=== PATIENT | female | born 1935 | race Caucasian/White ===

== ENCOUNTER 2017-03-07 17:21 | Observation (INO) | payer OTHER, MEDICAID ==
--- NOTE | 2017-03-07 18:14 | ED PDOC ---
Arrival/HPI - General Chief Complaint: High Blood Pressure Time Seen by Provider: 03/07/17 17:57 Historian: Patient - History of Present Illness Narrative History of Present Illness (Text): 03/07/17 18:08 81 year old female with a past medical history that includes hypertension, pacemaker, hypercholesterolemia, presents to the emergency department with cough for the past 2 weeks, worsening lower extremity edema, and strange feeling associated with elevated blood pressure today. Patient states she was at a community center today where she had an elevated blood pressure reading . She describes a funny feeling that she can't explain. Denies dizziness, vision changes, speech changes, numbness or weakness, chest pain, or shortness of breath. Patient reports cough for 2 weeks and states she has had a wheezing sound when she breathes. No other complaints at this time. Time/Duration: > week Symptom Onset: Gradual Symptom Course: Unchanged Quality: Unable to Describe Past Medical History - Provider Review Nursing Documentation Reviewed: Yes - Infectious Disease Hx of Infectious Diseases: None - Tetanus Immunization Tetanus Immunization: Unknown - Cardiac Hx Cardiac Disorders: Yes Hx Hypertension: Yes Hx Pacemaker: Yes - Pulmonary Hx Respiratory Disorders: No - Neurological Hx Neurological Disorder: No - HEENT Hx HEENT Disorder: Yes Hx Cataracts: Yes (bilateral sx) - Renal Hx Renal Disorder: No - Endocrine/Metabolic Hx Endocrine Disorders: No - Hematological/Oncological Hx Blood Disorders: No - Integumentary Hx Dermatological Disorder: Yes Other/Comment: bruise right arm, right thigh, left knee, left neck - Musculoskeletal/Rheumatological Hx Musculoskeletal Disorders: Yes Hx Falls: Yes (fell 5 days ago and today) - Gastrointestinal Hx Gastrointestinal Disorders: No - Genitourinary/Gynecological Hx Genitourinary Disorders: No - Psychiatric Hx Psychophysiologic Disorder: Yes Hx Depression: Yes Hx Substance Use: No - Past Surgical History Past Surgical History: Non-Contributing - Surgical History Hx Hysterectomy: Yes Hx Orthopedic Surgery: Yes (left knee replacement, l shoulder sx) Other/Comment: pace maker - Suicidal Assessment Feels Threatened In Home Enviroment: No Family/Social History - Physician Review Nursing Documentation Reviewed: Yes Family/Social History: Unknown Family HX Smoking Status: Never Smoked Hx Alcohol Use: No Hx Substance Use: No Allergies/Home Meds Allergies/Adverse Reactions: Allergies iv dye Allergy (Uncoded 03/07/17 17:49) SWELLING Home Medications: Home Meds Medication Instructions Recorded Confirmed Amlodipine Besylate/Benazepr 10 mg PO DAILY 04/24/14 03/07/17 [Amlodipine Besylate/Benazepril Hydrochloride ] Sertraline Hydrochloride 100 mg PO HS 04/24/14 03/07/17 clonazePAM [clonAZEPAM] 0.5 mg PO DAILY PRN 04/24/14 03/07/17 Lisinopril [Zestril] 30 mg PO DAILY 03/07/17 03/07/17 Review of Systems - Physician Review All systems were reviewed & negative as marked: Yes - Review of Systems Eyes: absent: Vision Changes Respiratory: Cough. absent: SOB Cardiovascular: Edema. absent: Chest Pain Neurological: absent: Dizziness, Focal Weakness, Speech Changes Physical Exam Vital Signs Reviewed: Yes Vital Signs Temp Pulse Pulse Resp BP BP Pulse Ox 03/07/17 18:01 84 182/109 H 03/07/17 17:58 997.7 F H 85 8 L 197/108 H 96 03/07/17 17:43 97.7 F 85 20 197/108 H 97 Temperature: Afebrile Blood Pressure: Hypertensive Pulse: Regular Respiratory Rate: Normal Appearance: Positive for: Well-Appearing, Non-Toxic, Comfortable Pain Distress: None Mental Status: Positive for: Alert and Oriented X 3 - Systems Exam Head: Present: Atraumatic, Normocephalic Pupils: Present: PERRL Extroacular Muscles: Present: EOMI Conjunctiva: Present: Normal Mouth: Present: Moist Mucous Membranes Neck: Present: Normal Range of Motion Respiratory/Chest: Present: Clear to Auscultation, Good Air Exchange. No: Respiratory Distress, Accessory Muscle Use, Wheezes Cardiovascular: Present: Regular Rate and Rhythm, Normal S1, S2. No: Murmurs Abdomen: Present: Normal Bowel Sounds. No: Tenderness, Distention, Peritoneal Signs Back: Present: Normal Inspection Upper Extremity: Present: Normal Inspection. No: Cyanosis, Edema Lower Extremity: Present: Edema (2+ edema, R>L) Neurological: Present: GCS=15, CN II-XII Intact, Speech Normal Skin: Present: Warm, Dry, Normal Color. No: Rashes Psychiatric: Present: Alert, Oriented x 3, Normal Insight, Normal Concentration Medical Decision Making ED Course and Treatment: Impression: 81 year old female with a past medical history that includes hypertension, pacemaker, hypercholesterolemia, presents to the emergency department with cough for the past 2 weeks, worsening lower extremity edema, and strange feeling associated with elevated blood pressure today. Differential Diagnosis include but are not limited to: Pneumonia vs CHF vs hypertensive urgency Plan: -- EKG, Chest X-ray -- US duplex lower extremities -- Apresoline -- Labs -- Reassess and disposition Prior Visits: Notes and results from previous visits were reviewed. Patient last seen in ED on 12/16/15 for mechanical fall and discharged home. Progress Notes: 03/07/17 18:35 EKG: Paced rhythm at 70 bpm, no change from previous. 03/07/17 19:02 Patient signed out to Dr. Hanson to follow up labs, reeval and disposition. Most likely admisssion. - RAD Interpretation Radiology Orders: 03/07/17 18:07 CHEST PORTABLE [RAD] Stat 03/07/17 18:09 DUPLEX LOWER EXTRM VEIN BILAT [US] Stat - Medication Orders Current Medication Orders: Hydralazine HCl (Apresoline) 10 mg IVP STAT [facility] Last Admin: 03/07/17 18:35 Dose: 10 mg KYLE Risk Score for UA/NSTEMI - KYLE Risk Score Age > 64: YES 3 or more CAD Risk Factors: YES Known CAD (Stenosis greater than 50%): NO Aspirin use in past 7 days: NO Severe Angina: NO EKG ST changes greater than 0.5mm: NO Positive Cardiac Marker: NO KYEL Score: 2 % risk at 14 days of: all cause mortality, new or recurrent GA, or severe recurrent ischemia requiring urgen revascularization: 8% Wells Criteria for PE - Wells Criteria for Pulmonary Embolism Clinical Signs and Symptoms of DVT: No P.E is #1 Diagnosis, or Equally Likely: No Heart Rate >100: No Immobilization at least 3 days;Surgery previous 4 weeks: No Previous, objectively diagnosed PE or DVT: No Hemoptysis: No Malignancy w/treatment within 6 months, or palliative: No Total Score: 0 - Scribe Statement The provider has reviewed the documentation as recorded by the Jake Gar Provider Scribe Attestation: All medical record entries made by the Mohamudibsilvina were at my direction and personally dictated by me. I have reviewed the chart and agree that the record accurately reflects my personal performance of the history, physical exam, medical decision making, and the department course for this patient. I have also personally directed, reviewed, and agree with the discharge instructions and disposition. Disposition/Present on Arrival - Present on Arrival Any Indicators Present on Arrival: No History of DVT/PE: No History of Uncontrolled Diabetes: No Urinary Catheter: No History of Decub. Ulcer: No History Surgical Site Infection Following: None - Disposition Have Diagnosis and Disposition been Completed?: No Diagnosis: Hypertension Disposition Time: 19:03 Condition: FAIR Referrals: Faustino Chester MD [Primary Care Provider] - Follow up with primary
[2017-03-07 18:52] LABS: ADD MANUAL DIFF? NO
[2017-03-07 19:09] LABS: URINE BILIRUBIN NEGATIVE (NEGATIVE); URINE BLOOD NEGATIVE (NEGATIVE); URINE GLUCOSE (UA) NEGATIVE (NEGATIVE); URINE KETONE NEGATIVE (NEGATIVE); URINE LEUKOCYTE ESTERASE SMALL Leu/uL (NEGATIVE); URINE PROTEIN NEGATIVE mg/dL (<30 mg/dL); URINE UROBILINOGEN 0.2 E.U./dL (<1 E.U./dL)
[2017-03-07 19:13] LABS: BASO # 0.03 K/mm3 (0.0-2.0); BASO % 0.5 % (0.0-3.0); EOS # 0.2 (0.0-0.7); EOS % 3.3 % (1.5-5.0); GRAN # 3.69 (1.4-6.5); GRAN % 57.1 % (50.0-68.0); HEMATOCRIT 37.9 % (36.0-48.0); LYMPH # 1.8 (1.2-3.4); LYMPH % 27.3 % (22.0-35.0); MEAN CELL VOLUME 96.4 fL (80.0-105.0); MEAN CORPUSCULAR HEMOGLOBIN 32.3 pg (25.0-35.0); MEAN CORPUSCULAR HGB CONC 33.5 g/dl (31.0-37.0); MEAN PLATELET VOLUME 11.8 fl (7.0-11.0); MONO # 0.8 (0.1-0.6); MONO % 11.8 % (1.0-6.0); PLATELET COUNT 157 10^3/uL (120.0-450.0); RED CELL DISTRIBUTION WIDTH 13.3 % (11.5-14.5); WHITE BLOOD COUNT 6.5 10^3/ul (4.5-11.0)
[2017-03-07 19:15] LABS: URINE APPEARANCE CLEAR (CLEAR); URINE COLOR YELLOW (YELLOW)
[2017-03-07 19:37] LABS: URINE BACTERIA SMALL (NEG); URINE EPITHELIAL CELLS 0 - 2 /hpf (0-5); URINE RBC 0 - 2 /hpf (0-2)
[2017-03-07 20:17] LABS: ALB/GLOB RATIO 1.1 (1.1-1.8); ALKALINE PHOSPHATASE 117 U/L (38-133); ALT/SGPT 149 U/L (7-56); AST/SGOT 101 U/L (15-39); BILIRUBIN,TOTAL 0.7 mg/dL (0.2-1.3); BLOOD UREA NITROGEN 20 mg/dL (7-21); CALCIUM 9.2 mg/dL (8.4-10.5); CARBON DIOXIDE 25 mmol/L (21-33); CHLORIDE 105 mmol/L (98-107); GFR AFRICAN-AMERICAN > 60; GLUCOSE,RANDOM 104 mg/dL (70-110); MAGNESIUM 2.1 mg/dL (1.7-2.2); POTASSIUM 4.1 mmol/L (3.6-5.0); SODIUM 139 mmol/L (132-148); TOTAL PROTEIN 7.8 g/dL (5.8-8.3)
[2017-03-07 20:26] LABS: TROPONIN I 0.02 ng/mL
--- NOTE | 2017-03-07 21:11 | ED PDOC ---
Physical Exam Vital Signs Reviewed: Yes Vital Signs Temp Pulse Pulse Resp BP BP Pulse Ox 03/07/17 19:59 79 16 159/96 H 99 03/07/17 18:01 84 182/109 H 03/07/17 17:58 997.7 F H 85 8 L 197/108 H 96 03/07/17 17:43 97.7 F 85 20 197/108 H 97 Temperature: Afebrile Blood Pressure: Hypertensive Pulse: Regular Respiratory Rate: Normal Appearance: Positive for: Well-Appearing, Non-Toxic, Comfortable Pain Distress: None Mental Status: Positive for: Alert and Oriented X 3 Medical Decision Making ED Course and Treatment: 03/07/17 19:00 Case endorsed to me by Dr. Solis, pending labs, re-evaluation, and disposition. doppler neg , elevatd bnp will tx with iv lasix and obs on tele 03/07/17 21:[address] Dan, who is aware and agrees with plan. 03/07/17 21:40 Case discussed with electromedical equipment repairer, who is aware and agrees with plan. 03/08/17 05:49 - Lab Interpretations Lab Results: 03/07/17 18:19 03/07/17 19:59 Lab Results 03/07/17 19:59: Sodium 139, Potassium 4.1, Chloride 105, Carbon Dioxide 25, Anion Gap 13, BUN 20, Creatinine 0.9, Est GFR ( Amer) > 60, Est GFR (Non- Af Amer) > 60, Random Glucose 104, Calcium 9.2, Magnesium 2.1, Total Bilirubin 0.7, AST 101 H, ALT 149 H, Alkaline Phosphatase 117, Lactate Dehydrogenase 956 H , Total Creatine Kinase 50, Troponin I 0.02, NT-Pro-B Natriuret Pep 6070 H, Total Protein 7.8, Albumin 4.1, Globulin 3.7, Albumin/Globulin Ratio 1.1 03/07/17 18:48: Urine Color Yellow, Urine Appearance Clear, Urine pH 6.0, Ur Specific Dalton 1.010, Urine Protein Negative, Urine Glucose (UA) Negative, Urine Ketones Negative, Urine Blood Negative, Urine Nitrate Negative, Urine Bilirubin Negative, Urine Urobilinogen 0.2, Ur Leukocyte Esterase Small H, Urine RBC 0 - 2, Urine WBC 2 - 5, Ur Epithelial Cells 0 - 2, Urine Bacteria Small 03/07/17 18:19: WBC 6.5, RBC 3.93, Hgb 12.7, Hct 37.9, MCV 96.4, MCH 32.3, MCHC 33.5, RDW 13.3, Plt Count 157, MPV 11.8 H, Gran % 57.1, Lymph % (Auto) 27.3, Boundary % (Auto) 11.8 H, Eos % (Auto) 3.3, Baso % (Auto) 0.5, Gran # 3.69, Lymph # 1.8, Boundary # 0.8 H, Eos # 0.2, Baso # 0.03 - RAD Interpretation Radiology Orders: 03/07/17 18:07 CHEST PORTABLE [RAD] Stat 03/07/17 18:09 DUPLEX LOWER EXTRM VEIN BILAT [US] Stat - Medication Orders Current Medication Orders: Hydralazine HCl (Apresoline) 10 mg IVP STAT ASUNCION Last Admin: 03/07/17 18:35 Dose: 10 mg Discontinued Medications Furosemide (Lasix) 40 mg IVP ONCE ONE Stop: 03/07/17 20:49 Last Admin: 03/07/17 21:07 Dose: 40 mg Disposition/Present on Arrival - Present on Arrival Any Indicators Present on Arrival: No History of DVT/PE: No History of Uncontrolled Diabetes: No Urinary Catheter: No History of Decub. Ulcer: No History Surgical Site Infection Following: None - Disposition Have Diagnosis and Disposition been Completed?: Yes Diagnosis: Hypertension Disposition: HOSPITALIZED Disposition Time: 23:00 Patient Problems: Current Active Problems Problem Status Onset Hypertension Acute Condition: FAIR
--- NOTE | 2017-03-08 00:27 | CP.PCM.HP ---
<Federico Hernandez - Last Filed: 03/08/17 00:34> History of Present Illness - History of Present Illness History of Present Illness: CC: "High blood pressure" HPI: Pt is an 81 y/o female with a PMx of HTN, atrial fibrillation, pacemaker placement, and open heart surgery due to reported valvular disease who presented to the ED after she reports she went to a clinic and was told that she had a very high blood pressure earlier in the day. She reports that she went home and then decided to come to the ED. Pt is a poor historian. She reports that she does not know where exactly the clinic was, but it was in [place]. She also reports that she does not know he name of her PMD. Pt reports that she has some right neck pain secondary to physical therapy. She reports palpitations and b/l lower extremity edema. Pt denies chest pain, shortness of breath, fever, chills, nausea, and vomiting. PMHx: Atrial fibrillation, and open heart surgery due to reported valvular disease Past Surgical Hx: open heart surgery and pacemaker placement she (she reports Ctober of 2015) Home medications: cannot recall namses, reports sheis prescribed a medication for HTN but she has not been taking it Allergies: Contrast dye Social Hx: denies hx of tobacco, alcocol, drug use Fam Hx: Heart disease (mother) Present on Admission - Present on Admission Any Indicators Present on Admission: No Review of Systems - Constitutional Constitutional: absent: Chills, Fever - EENT Eyes: absent: Blind Spots, Blurred Vision Ears: absent: Disequilibrium, Dizziness Nose/Mouth/Throat: absent: Nose Pain, Hoarsness - Cardiovascular Cardiovascular: Edema, Irregular Heart Rhythm. absent: Chest Pain at Rest, Dyspnea - Respiratory Respiratory: absent: Cough, Dyspnea - Gastrointestinal Gastrointestinal: absent: Abdominal Pain, Constipation, Nausea - Musculoskeletal Musculoskeletal: Neck Pain - Neurological Neurological: absent: Dizziness, Syncope - Endocrine Endocrine: absent: Fatigue Past Patient History - Infectious Disease Hx of Infectious Diseases: None - Tetanus Immunizations Tetanus Immunization: Unknown - Past Social History Smoking Status: Never Smoked - CARDIAC Hx Cardiac Disorders: Yes Hx Hypertension: Yes Hx Pacemaker: Yes - PULMONARY Hx Respiratory Disorders: No - NEUROLOGICAL Hx Neurological Disorder: No - HEENT Hx HEENT Problems: Yes Hx Cataracts: Yes (bilateral sx) - RENAL Hx Chronic Kidney Disease: No - ENDOCRINE/METABOLIC Hx Endocrine Disorders: No - HEMATOLOGICAL/ONCOLOGICAL Hx Blood Disorders: No - INTEGUMENTARY Hx Dermatological Problems: Yes Other/Comment: bruise right arm, right thigh, left knee, left neck - MUSCULOSKELETAL/RHEUMATOLOGICAL Hx Musculoskeletal Disorders: Yes Hx Falls: Yes (fell 5 days ago and today) - GASTROINTESTINAL Hx Gastrointestinal Disorders: No - GENITOURINARY/GYNECOLOGICAL Hx Genitourinary Disorders: No - PSYCHIATRIC Hx Psychophysiologic Disorder: Yes Hx Depression: Yes Hx Substance Use: No - SURGICAL HISTORY Hx Hysterectomy: Yes Hx Orthopedic Surgery: Yes (left knee replacement, l shoulder sx) Other/Comment: pace maker Meds Allergies/Adverse Reactions: Allergies Allergy/AdvReac Type Severity Reaction Status Date / Time iv dye Allergy SWELLING Uncoded 03/07/17 17:49 Physical Exam - Constitutional Appears: No Acute Distress - Head Exam Head Exam: ATRAUMATIC, NORMOCEPHALIC - Eye Exam Eye Exam: EOMI, PERRL Pupil Exam: PERRL - ENT Exam ENT Exam: Mucous Membranes Moist. absent: Mucous Membranes Dry - Respiratory Exam Respiratory Exam: Clear to Auscultation Bilateral. absent: Rales, Rhonchi, Wheezes - Cardiovascular Exam Cardiovascular Exam: +S1, +S2. absent: Gallop, Rubs - GI/Abdominal Exam GI & Abdominal Exam: Soft. absent: Distended, Guarding - Extremities Exam Extremities exam: Positive for: pedal edema Additional comments: Trace b/l pedal edema - Neurological Exam Neurological exam: Alert, Oriented x3 - Psychiatric Exam Psychiatric exam: Normal Affect, Normal Mood - Skin Skin Exam: Normal Color, Warm Results - Vital Signs Recent Vital Signs: Last Vital Signs Temp 98.0 F 03/07/17 23:16 Pulse 80 03/07/17 23:16 Resp 16 03/07/17 23:30 BP 170/99 H 03/07/17 23:16 Pulse Ox 98 03/07/17 23:30 - Labs Result Diagrams: 03/07/17 18:19 03/07/17 19:59 Assessment & Plan - Assessment and Plan (Free Text) Assessment: Hypertensive Urgency: BP: 197/108 on arrival to ED 10 mg IV hydralazine given in ED BP currently normal Continue to monitor Norvasc 10 mg po qd CHF Exacerbation: Troponin x 1 0.02 Serial Troponins pending EKG - Atrial fibrillation, t wave inversion Repeat EKG in the am Pro-BNP 6070 Lasix 40 mg IV one dose given in ED Cardiology, Dr. Lauren, consulted. Help appreciated. CXR - official read pending Lower extremity dopplers pending Atrial Fibrillation: EKG - Atrial fibrillation, t wave inversion Home medication of propanolol held Follow up cardio recs Transaminitis: AST/ALT: 101/119 Hepatitis panel pending Derpression/Anxiety: Sertraline 100 mg po qd Klonopin 0. mg po prn Prophylactic Measures: DVT: Heparin 5000 units sc q8h GI: Protonix 40 mg po qd <Bjorn Dan - Last Filed: 03/16/17 09:21> Results - Vital Signs Recent Vital Signs: Last Vital Signs Temp 97.1 F L 03/09/17 11:46 Pulse 60 03/09/17 15:00 Resp 19 03/09/17 11:46 BP 116/74 03/09/17 15:00 Pulse Ox 98 03/09/17 06:00 - Labs Result Diagrams: 03/09/17 06:30 03/09/17 06:30 Attending/Attestation - Attestation I have personally seen and examined this patient.: Yes I have fully participated in the care of the patient.: Yes I have reviewed all pertinent clinical information: Yes Notes (Text): 03/16/17 09:21 Medical record note made by the resident after discussion with my direction and input after the patient was personally seen and examined by me. I have reviewed the chart and agree that the record accurately reflects by personal performance of the history, physical exam, data review, and medical decision-making, in the course for the patient. I have also personally directed the plan of care.
[2017-03-08 02:38] VITALS: BMI 32.3
[2017-03-08 02:55] LABS: TROPONIN I 0.02 ng/mL
[2017-03-08] MEDS: Pantoprazole 40 mg EC Tab PO SCH (05:35)
--- NOTE | 2017-03-08 08:37 | US ---
HISTORY: Leg pain and swelling. Evaluate for DVT PHYSICIAN(S): Phill Stapleton MD. TECHNIQUE: Duplex sonography and color-flow Doppler with graded compression were used to evaluate the deep venous systems of both lower extremities. FINDINGS: The visualized deep venous systems of both lower extremities are sonographically normal and compressible. Normal wave forms and augmentation are seen. There is no sonographic evidence for deep venous thrombosis in the visualized segments of both lower extremities. IMPRESSION: No sonographic evidence for deep venous thrombosis in the visualized segments of both lower extremities.
--- NOTE | 2017-03-08 08:42 | RAD ---
HISTORY: sob r/o pna vs chf COMPARISON: 05/12/2014 FINDINGS: LUNGS: No active pulmonary disease. PLEURA: No significant pleural effusion identified, no pneumothorax apparent. CARDIOVASCULAR: Mild cardiomegaly. AICD. Sternotomy wires. OSSEOUS STRUCTURES: No significant abnormalities. VISUALIZED UPPER ABDOMEN: Normal. OTHER FINDINGS: None. IMPRESSION: No active disease.
--- NOTE | 2017-03-08 09:48 | CON ---
DATE: 03/08/2017 HISTORY OF PRESENT ILLNESS: The patient is an 81-year-old woman who presents with an accelerated hyp ertension. The patient's past medical history is predominantly from the chart, however, the patient is a poor hi storian. PAST MEDICAL HISTORY: Includes a history of coronary artery bypass surgery. She suffers from chroni c atrial fibrillation. In addition, she suffers from hypertension as well as intermittent CHF. I suspect because of her history of recurrent falls and noncompliance, no anticoagulation was ordered for her atrial fibrillation. SOCIAL HISTORY: Denies smoking. REVIEW OF SYSTEMS: A 14-point review of systems was reviewed. No chest pain, no dyspnea this mornin g. No edema in the lower extremities. No dizziness. No loss of consciousness. PHYSICAL EXAMINATION: VITAL SIGNS: Blood pressure is 157/99. The heart rate in the 90s, atrial fibrillation. NECK: Negative JVD. LUNGS: Without rales. HEART: Reveals S1, S2. EXTREMITIES: Without edema. EKG shows atrial fibrillation with nonspecific ST-T changes. LABORATORIES: Troponins are negative x 2, ProBNP is 6070. The hemoglobin is 12.7, white count is no rmal. IMPRESSION: 1. Mild congestive heart failure. 2. Stable angina. 3. Status post coronary artery bypass surgery. 4. Coronary artery disease. 5. History of atrial fibrillation. Given these findings, will change her Lasix to p.o. Lasix. Her Zestril has been reordered. Will obt ain an echocardiogram. Given her history of recurrent falls and noncompliance, I do not feel the pat ient can be safely anticoagulated for her atrial fibrillation. Phill Lauren MD cc: [id number] TT: 03/08/2017 09:46:49 Confirmation # [id number] Dictation # [id number]
[2017-03-08] MEDS ORDERED: BENAZEPRIL PO SCH (10:00)
[2017-03-08] MEDS ORDERED: [UNRECOGNIZED DRUG - OTHER] PO SCH (10:00)
[2017-03-08] MEDS ORDERED: AMLODIPINE BESYLATE PO SCH (10:00)
--- NOTE | 2017-03-08 10:13 | CARD ---
APPROVED REPORT EKG Measurement Heart [id number] <Conclusion> Atrial fibrillation Right bundle branch block Abnormal ECG
--- NOTE | 2017-03-08 10:38 | CARD ---
APPROVED REPORT EKG Measurement Heart [id number] <Conclusion> Demand pacemaker, interpretation is based on intrinsic rhythm Atrial fibrillation with premature ventricular or aberrantly conducted complexes Nonspecific intraventricular block T wave abnormality, consider anterolateral ischemia or digitalis effect Abnormal ECG
[2017-03-08 10:55] LABS: TROPONIN I 0.02 ng/mL
[2017-03-08] MEDS: Enoxaparin 40 mg Syringe SC SCH (11:00)
[2017-03-08 12:05] LABS: IRON 81 ug/dL (45-180)
[2017-03-09 06:26] VITALS: O2SAT 98
[2017-03-09] MEDS: Pantoprazole 40 mg EC Tab PO SCH (06:51)
[2017-03-09 07:23] LABS: ADD MANUAL DIFF? NO
[2017-03-09 07:37] LABS: BASO # 0.02 K/mm3 (0.0-2.0); BASO % 0.4 % (0.0-3.0); EOS # 0.2 (0.0-0.7); EOS % 3.3 % (1.5-5.0); GRAN # 2.52 (1.4-6.5); GRAN % 46.9 % (50.0-68.0); HEMATOCRIT 41.4 % (36.0-48.0); LYMPH % 36.8 % (22.0-35.0); MEAN CELL VOLUME 95.8 fL (80.0-105.0); MEAN CORPUSCULAR HEMOGLOBIN 31.5 pg (25.0-35.0); MEAN CORPUSCULAR HGB CONC 32.9 g/dl (31.0-37.0); MEAN PLATELET VOLUME 11.1 fl (7.0-11.0); MONO # 0.7 (0.1-0.6); MONO % 12.6 % (1.0-6.0); PLATELET COUNT 126 10^3/uL (120.0-450.0); WHITE BLOOD COUNT 5.4 10^3/ul (4.5-11.0)
[2017-03-09 07:52] LABS: ALB/GLOB RATIO 1.1 (1.1-1.8); BILIRUBIN,TOTAL 0.7 mg/dL (0.2-1.3); POTASSIUM 4.1 mmol/L (3.6-5.0)
[2017-03-09] MEDS: Enoxaparin 40 mg Syringe SC SCH (10:55)
[2017-03-09 11:47] VITALS: RESP 19; TEMP 97.1
--- NOTE | 2017-03-09 12:09 | CP.PCM.DIS ---
Addendum entered and electronically signed by Seferino Gonzalez DO 03/09/17 15:05 : Physical Examination: Head: Atraumatic Normocephalic Neck: Supple, no JVD, no thyromegaly Heart: S1 S2, no rubs or gallops, RRR Pulm: Lungs clear to auscultation bilaterally, no wheezing, rales or ronchi GI: Abdomen soft, nontender, nondistended, no rebound no guarding Extremities: No clubbing, cyanosis or edema Neuro: Alert, oriented x3, muscle strength 5/5 bilaterally in upper and lower extremities Psych: Normal affect and mood Original Note: <Seferino Gonzalez - Last Filed: 03/09/17 14:52> Provider - Provider Date of Admission: 03/07/17 21:25 Attending physician: Bon Chowdhury MD Primary care physician: Faustino Chester MD Consults: Cardiology - Dr. Lauren Time Spent in preparation of Discharge (in minutes): 30 Hospital Course - Lab Results Lab Results: Most Recent Lab Values WBC 5.4 10^3/ul (4.5-11.0) 03/09/17 06:30 RBC 4.32 10^6/uL (3.5-6.1) 03/09/17 06:30 Hgb 13.6 gm/dL (12.0-16.0) 03/09/17 06:30 Hct 41.4 % (36.0-48.0) 03/09/17 06:30 MCV 95.8 fL (80.0-105.0) 03/09/17 06:30 MCH 31.5 pg (25.0-35.0) 03/09/17 06:30 MCHC 32.9 g/dl (31.0-37.0) 03/09/17 06:30 RDW 13.0 % (11.5-14.5) 03/09/17 06:30 Plt Count 126 10^3/uL (120.0-450.0) 03/09/17 06:30 MPV 11.1 fl (7.0-11.0) H 03/09/17 06:30 Gran % 46.9 % (50.0-68.0) L 03/09/17 06:30 Lymph % (Auto) 36.8 % (22.0-35.0) H 03/09/17 06:30 Isabella % (Auto) 12.6 % (1.0-6.0) H 03/09/17 06:30 Eos % (Auto) 3.3 % (1.5-5.0) 03/09/17 06:30 Baso % (Auto) 0.4 % (0.0-3.0) 03/09/17 06:30 Gran # 2.52 (1.4-6.5) 03/09/17 06:30 Lymph # 2.0 (1.2-3.4) 03/09/17 06:30 Isabella # 0.7 (0.1-0.6) H 03/09/17 06:30 Eos # 0.2 (0.0-0.7) 03/09/17 06:30 Baso # 0.02 K/mm3 (0.0-2.0) 03/09/17 06:30 APTT 25.7 Seconds (23.7-30.8) 03/08/17 02:20 Sodium 138 mmol/L (132-148) 03/09/17 06:30 Potassium 4.1 mmol/L (3.6-5.0) 03/09/17 06:30 Chloride 99 mmol/L (95-110) 03/09/17 06:30 Carbon Dioxide 31 mmol/L (21-33) 03/09/17 06:30 Anion Gap 12 (10-20) 03/09/17 06:30 BUN 20 mg/dL (7-21) 03/09/17 06:30 Creatinine 1.1 mg/dL (0.5-1.4) 03/09/17 06:30 Est GFR ( Amer) 58 03/09/17 06:30 Est GFR (Non-Af Amer) 48 03/09/17 06:30 Random Glucose 113 mg/dL (70-110) H 03/09/17 06:30 Calcium 9.0 mg/dL (8.4-10.5) 03/09/17 06:30 Magnesium 2.1 mg/dL (1.7-2.2) 03/07/17 19:59 Iron 81 ug/dL (45-180) 03/08/17 11:36 TIBC 304 ug/dL (265-497) 03/08/17 11:36 % Saturation 27 % (20-55) 03/08/17 11:36 Ferritin 98.7 ng/mL 03/08/17 11:36 Total Bilirubin 0.7 mg/dL (0.2-1.3) 03/09/17 06:30 AST 44 U/L (15-39) H 03/09/17 06:30 ALT 94 U/L (7-56) H 03/09/17 06:30 Alkaline Phosphatase 91 U/L (38-133) 03/09/17 06:30 Lactate Dehydrogenase 837 U/L (333-699) H 03/08/17 10:29 Total Creatine Kinase 105 U/L (35-230) 03/08/17 10:29 Troponin I 0.02 ng/mL 03/08/17 10:29 NT-Pro-B Natriuret Pep 6070 pg/mL (0-450) H 03/07/17 19:59 Total Protein 7.0 g/dL (5.8-8.3) 03/09/17 06:30 Albumin 3.7 g/dL (3.0-4.8) 03/09/17 06:30 Globulin 3.4 gm/dL 03/09/17 06:30 Albumin/Globulin Ratio 1.1 (1.1-1.8) 03/09/17 06:30 Urine Color Yellow (YELLOW) 03/07/17 18:48 Urine Appearance Clear (CLEAR) 03/07/17 18:48 Urine pH 6.0 (4.7-8.0) 03/07/17 18:48 Ur Specific [place] 1.010 (1.005-1.035) 03/07/17 18:48 Urine Protein Negative mg/dL (<30 mg/dL) 03/07/17 18:48 Urine Glucose (UA) Negative mg/dL (NEGATIVE) 03/07/17 18:48 Urine Ketones Negative mg/dL (NEGATIVE) 03/07/17 18:48 Urine Blood Negative (NEGATIVE) 03/07/17 18:48 Urine Nitrate Negative (NEGATIVE) 03/07/17 18:48 Urine Bilirubin Negative (NEGATIVE) 03/07/17 18:48 Urine Urobilinogen 0.2 E.U./dL (<1 E.U./dL) 03/07/17 18:48 Ur Leukocyte Esterase Small Dario/uL (NEGATIVE) H 03/07/17 18:48 Urine RBC 0 - 2 /hpf (0-2) 03/07/17 18:48 Urine WBC 2 - 5 /hpf (0-6) 03/07/17 18:48 Ur Epithelial Cells 0 - 2 /hpf (0-5) 03/07/17 18:48 Urine Bacteria Small (NEG) 03/07/17 18:48 Hepatitis A IgM Ab Negative (NEGATIVE) 03/08/17 02:20 Hep Bs Antigen Negative (NEGATIVE) 03/08/17 02:20 Hep B Core IgM Ab Negative (NEGATIVE) 03/08/17 02:20 Hepatitis C Antibody Negative (NEGATIVE) 03/08/17 02:20 - Hospital Course Hospital Course: Patient is an 81 yo female with a past medical history of hypertension , atrial fibrillation, pacemaker placement, and open heart surgery reportedly due to some valvular problem who presented to [facility] after going to a clinic and being told that she had a very high blood pressure. She reported that she went home and then decided to come to the emergency room later in the day. Patient was unfortunately a poor historian and was unable to provide the contact information of the clinic or who she followed up with as an outpatient for various medical problems. She was able to report that she had been having palpitations and b/l lower extremity edema, however denied chest pain, shortness of breath, fever, chills, nausea, vomiting, abdominal pain, focal weakness, numbness, tingling. On evaluation in the ED, her BP was noted to be 197/108 on arrival. She was subsequently given 10mg of IV hydralazine as well as placed on norvasc 10mg PO daily. Her EKG's were reviewed and revealed a pacing rhythm at 70bpm, atrial fibrillation with premature ventricular or aberrantly conducted complexes, nonspecific intraventricular block. Troponin was trended and negative x 3. NT-proBNP was 6070 on arrival. Lower extremity doppler was negative for DVT. Cardiology was consulted. Her BP was normalized and she was started on Coreg 6.25mg PO BID, Lasix 40mg PO BID, Norvasc 5mg PO qD , Lisinopril 30mg PO daily. Patient improved during her hospital course and no longer had complaints of palpitations. Her BP was within normal limits and she was agreeable to discharge. She was instructed to follow up with her primary doctor and home theatre technician within 3-5 days of discharge. - Date & Time of H&P Date of H&P: 03/09/17 Time of H&P: 14:51 Discharge Exam - Head Exam Head Exam: ATRAUMATIC, NORMOCEPHALIC Discharge Plan - Discharge Medications Prescriptions: Carvedilol [Coreg] 6.25 mg PO BID #60 tab Furosemide [Lasix] 40 mg PO BID #60 tab - Follow Up Plan Condition: FAIR Disposition: HOME/ ROUTINE Instructions: Heart Failure (DC), Heart Failure (GEN) Additional Instructions: 1. Follow up with your primary doctor within 3-5 days of discharge. 2. Follow up with your home theatre technician within 3-5 days of discharge. 3. Return to the emergency room should your symptoms worsen or change in quality /severity. Referrals: Faustino Chester MD [Primary Care Provider] - <Bjorn Dan - Last Filed: 03/16/17 09:23> Provider - Provider Date of Admission: 03/07/17 21:25 Attending physician: Bon Chowdhury MD Primary care physician: Faustino Chester MD Hospital Course - Lab Results Lab Results: Most Recent Lab Values WBC 5.4 10^3/ul (4.5-11.0) 03/09/17 06:30 RBC 4.32 10^6/uL (3.5-6.1) 03/09/17 06:30 Hgb 13.6 gm/dL (12.0-16.0) 03/09/17 06:30 Hct 41.4 % (36.0-48.0) 03/09/17 06:30 MCV 95.8 fL (80.0-105.0) 03/09/17 06:30 MCH 31.5 pg (25.0-35.0) 03/09/17 06:30 MCHC 32.9 g/dl (31.0-37.0) 03/09/17 06:30 RDW 13.0 % (11.5-14.5) 03/09/17 06:30 Plt Count 126 10^3/uL (120.0-450.0) 03/09/17 06:30 MPV 11.1 fl (7.0-11.0) H 03/09/17 06:30 Gran % 46.9 % (50.0-68.0) L 03/09/17 06:30 Lymph % (Auto) 36.8 % (22.0-35.0) H 03/09/17 06:30 Isabella % (Auto) 12.6 % (1.0-6.0) H 03/09/17 06:30 Eos % (Auto) 3.3 % (1.5-5.0) 03/09/17 06:30 Baso % (Auto) 0.4 % (0.0-3.0) 03/09/17 06:30 Gran # 2.52 (1.4-6.5) 03/09/17 06:30 Lymph # 2.0 (1.2-3.4) 03/09/17 06:30 Isabella # 0.7 (0.1-0.6) H 03/09/17 06:30 Eos # 0.2 (0.0-0.7) 03/09/17 06:30 Baso # 0.02 K/mm3 (0.0-2.0) 03/09/17 06:30 APTT 25.7 Seconds (23.7-30.8) 03/08/17 02:20 Sodium 138 mmol/L (132-148) 03/09/17 06:30 Potassium 4.1 mmol/L (3.6-5.0) 03/09/17 06:30 Chloride 99 mmol/L (95-110) 03/09/17 06:30 Carbon Dioxide 31 mmol/L (21-33) 03/09/17 06:30 Anion Gap 12 (10-20) 03/09/17 06:30 BUN 20 mg/dL (7-21) 03/09/17 06:30 Creatinine 1.1 mg/dL (0.5-1.4) 03/09/17 06:30 Est GFR ( Amer) 58 03/09/17 06:30 Est GFR (Non-Af Amer) 48 03/09/17 06:30 Random Glucose 113 mg/dL (70-110) H 03/09/17 06:30 Calcium 9.0 mg/dL (8.4-10.5) 03/09/17 06:30 Magnesium 2.1 mg/dL (1.7-2.2) 03/07/17 19:59 Iron 81 ug/dL (45-180) 03/08/17 11:36 TIBC 304 ug/dL (265-497) 03/08/17 11:36 % Saturation 27 % (20-55) 03/08/17 11:36 Ferritin 98.7 ng/mL 03/08/17 11:36 Total Bilirubin 0.7 mg/dL (0.2-1.3) 03/09/17 06:30 AST 44 U/L (15-39) H 03/09/17 06:30 ALT 94 U/L (7-56) H 03/09/17 06:30 Alkaline Phosphatase 91 U/L (38-133) 03/09/17 06:30 Lactate Dehydrogenase 837 U/L (333-699) H 03/08/17 10:29 Total Creatine Kinase 105 U/L (35-230) 03/08/17 10:29 Troponin I 0.02 ng/mL 03/08/17 10:29 NT-Pro-B Natriuret Pep 6070 pg/mL (0-450) H 03/07/17 19:59 Total Protein 7.0 g/dL (5.8-8.3) 03/09/17 06:30 Albumin 3.7 g/dL (3.0-4.8) 03/09/17 06:30 Globulin 3.4 gm/dL 03/09/17 06:30 Albumin/Globulin Ratio 1.1 (1.1-1.8) 03/09/17 06:30 Urine Color Yellow (YELLOW) 03/07/17 18:48 Urine Appearance Clear (CLEAR) 03/07/17 18:48 Urine pH 6.0 (4.7-8.0) 03/07/17 18:48 Ur Specific [place] 1.010 (1.005-1.035) 03/07/17 18:48 Urine Protein Negative mg/dL (<30 mg/dL) 03/07/17 18:48 Urine Glucose (UA) Negative mg/dL (NEGATIVE) 03/07/17 18:48 Urine Ketones Negative mg/dL (NEGATIVE) 03/07/17 18:48 Urine Blood Negative (NEGATIVE) 03/07/17 18:48 Urine Nitrate Negative (NEGATIVE) 03/07/17 18:48 Urine Bilirubin Negative (NEGATIVE) 03/07/17 18:48 Urine Urobilinogen 0.2 E.U./dL (<1 E.U./dL) 03/07/17 18:48 Ur Leukocyte Esterase Small Dario/uL (NEGATIVE) H 03/07/17 18:48 Urine RBC 0 - 2 /hpf (0-2) 03/07/17 18:48 Urine WBC 2 - 5 /hpf (0-6) 03/07/17 18:48 Ur Epithelial Cells 0 - 2 /hpf (0-5) 03/07/17 18:48 Urine Bacteria Small (NEG) 03/07/17 18:48 Hepatitis A IgM Ab Negative (NEGATIVE) 03/08/17 02:20 Hep Bs Antigen Negative (NEGATIVE) 03/08/17 02:20 Hep B Core IgM Ab Negative (NEGATIVE) 03/08/17 02:20 Hepatitis C Antibody Negative (NEGATIVE) 03/08/17 02:20 Attending/Attestation - Attestation I have personally seen and examined this patient.: Yes I have fully participated in the care of the patient.: Yes I have reviewed all pertinent clinical information, including history, physical exam and plan: Yes Notes (Text): 03/16/17 09:23 Medical record note made by the resident after discussion with my direction and input after the patient was personally seen and examined by me. I have reviewed the chart and agree that the record accurately reflects by personal performance of the history, physical exam, data review, and medical decision-making, in the course for the patient. I have also personally directed the plan of care.
[2017-03-09 15:57] VITALS: BP 116/74; PULSE 60
--- NOTE | 2017-03-09 16:50 | CARD ---
APPROVED REPORT EXAM: Two-dimensional and M-mode echocardiogram with Doppler and color Doppler. INDICATION Congestive Heart Failure 2D DIMENSIONS Left Atrium (2D)5.3 (1.6-4.0cm)IVSd1.0 (0.7-1.1cm) LVDd4.8 (3.9-5.9cm)PWd1.3 (0.7-1.1cm) LVDs4.1 (2.5-4.0cm)FS (%) 14.3 % LVEF (%)30.6 (>50%) M-Mode DIMENSIONS Aortic Root3.20 (2.2-3.7cm)Aortic Cusp Exc.1.20 (1.5-2.0cm) Aortic Valve AoV Peak Nxewcwnz646.0cm/sAoV VTI60.9cmAO Peak GR.40mmHg AO Mean GR.22mmHg Mitral Valve MV E Peak Gr.16mmHgMV E Mean Gr.9mmHgMV [id number] E/A ratio0.0MVA (PHT)1.45cm2 TDI E/Lateral E'0.0E/Medial E'0.0 Pulmonary Valve PV Peak Yehnkghv34.6cm/sPV Peak Grad.2mmHg Tricuspid Valve TR Peak [id number]/sRAP [id number] Peak Gr.43mmHg [id number] LEFT VENTRICLE The left ventricle is normal size. There is normal left ventricular wall thickness. The systolic function is severely impaired. Sever Septal and Apical hypokinesis No left ventricle thrombus noted on this study. RIGHT VENTRICLE The right ventricle is normal size. There is normal right ventricular wall thickness. The right ventricular systolic function is normal. There is a pacemaker lead in the right ventricle. ATRIA The left atrium is moderately dilated. The right atrium is moderately dilated. AORTIC VALVE The aortic valve is moderately thickened. There is mild to moderate valvular aortic stenosis. MITRAL VALVE Mitral regurgitation is mild. 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 There is mild tricuspid regurgitation. <Conclusion> The left ventricle is normal size. There is normal left ventricular wall thickness. The systolic function is severely impaired. Sever Septal and Apical hypokinesis No left ventricle thrombus noted on this study. 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 There is mild to moderate valvular aortic stenosis.
== END 2017-03-09 15:55 | disposition home or self-care (01) ==
LOC: ED 17:21 → ERH 21:25 → 2RNO 23:53
PROVIDERS: ADMIT Internal Medicine; ATTEND Internal Medicine
DX: I16.0 Hypertensive urgency (principal); I11.0 Hypertensive heart disease with heart failure; I50.9 Heart failure, unspecified; I25.119 Atherosclerotic heart disease of native coronary artery with unspecified angina pectoris; I48.2 Chronic atrial fibrillation; F41.9 Anxiety disorder, unspecified; Z95.0 Presence of cardiac pacemaker; Z91.19 Patient's noncompliance with other medical treatment and regimen; R29.6 Repeated falls; Z95.1 Presence of aortocoronary bypass graft; Z90.710 Acquired absence of both cervix and uterus; Z96.652 Presence of left artificial knee joint; Z82.49 Family history of ischemic heart disease and other diseases of the circulatory system
CPT/HCPCS: 36415; 71010; 80053; 80074; 81001; 82550; 82728; 83540; 83550; 83615; 83735; 83880; 84484; 85025; 85730; 87086; 93005; 93306; 93970; 96374; 99285; G0378; J0360; J1644; J1650; J1940

== ENCOUNTER 2017-08-12 10:27 | Emergency (ER) | payer OTHER, MEDICAID ==
[2017-08-12 10:27] VITALS: BMI 32.3
[2017-08-12 10:46] VITALS: O2SAT 98
--- NOTE | 2017-08-12 11:50 | ED PDOC ---
Arrival/HPI - General Chief Complaint: Trauma Time Seen by Provider: 08/12/17 10:32 Historian: Patient - History of Present Illness Narrative History of Present Illness (Text): 08/12/17 11:47 A 81 year old female, whose past medical history includes sciatica of right side , back injury, elbow dislocation, any hypertension, presents to the emergency department via EMS through life alert button, for a chin injury after falling out of bed this morning and she hit her chin on the table. The patient denies loss of consciousness and neck pain or headaches. Time/Duration: Prior to Arrival Symptom Onset: Sudden Symptom Course: Unchanged Activities at Onset: Rest Context: Home Past Medical History - Provider Review Nursing Documentation Reviewed: Yes - Infectious Disease Hx of Infectious Diseases: None - Tetanus Immunization Tetanus Immunization: Unknown - Reproductive Menopause: Yes - Cardiac Hx Cardiac Disorders: Yes Hx Hypertension: Yes Hx Pacemaker: Yes - Pulmonary Hx Respiratory Disorders: No - Neurological Hx Neurological Disorder: No - HEENT Hx HEENT Disorder: Yes Hx Cataracts: Yes (b/l sx) - Renal Hx Renal Disorder: No - Endocrine/Metabolic Hx Endocrine Disorders: No - Hematological/Oncological Hx Blood Disorders: No - Integumentary Hx Dermatological Disorder: Yes Other/Comment: bruise right arm, right thigh, left knee, left neck - Musculoskeletal/Rheumatological Hx Falls: Yes Hx Unsteady Gait: Yes (uses walker) - Gastrointestinal Hx Gastrointestinal Disorders: No - Genitourinary/Gynecological Other/Comment: hysterectomy - Psychiatric Hx Anxiety: Yes Hx Depression: Yes Hx Substance Use: No - Past Surgical History Past Surgical History: Non-Contributing - Surgical History Hx Orthopedic Surgery: Yes (left knee replacement, left shoulder sx) - Anesthesia Hx Anesthesia: Yes Hx Anesthesia Reactions: No Hx Malignant Hyperthermia: No - Suicidal Assessment Feels Threatened In Home Enviroment: No Family/Social History - Physician Review Nursing Documentation Reviewed: Yes Family/Social History: Unknown Family HX Smoking Status: Never Smoked Hx Alcohol Use: No Hx Substance Use: No Allergies/Home Meds Allergies/Adverse Reactions: Allergies iv dye Allergy (Uncoded 08/12/17 10:38) SWELLING Home Medications: Home Meds Medication Instructions Recorded Confirmed clonazePAM [Klonopin] 0.5 mg PO DAILY PRN 04/24/14 08/12/17 Lisinopril [Zestril] 30 mg PO DAILY 03/07/17 08/12/17 Melatonin [Melatin] 1 tab PO DAILY 03/08/17 08/12/17 Sennosides [Senexon] 1 tab PO DAILY 03/08/17 08/12/17 Sertraline HCl 100 mg PO DAILY 03/08/17 08/12/17 amLODIPine [Norvasc] 10 mg PO DAILY 03/08/17 08/12/17 Review of Systems - Physician Review All systems were reviewed & negative as marked: Yes - Review of Systems Musculoskeletal: Other (chin pain). absent: Neck Pain Neurological: absent: Headache Physical Exam Vital Signs Reviewed: Yes Vital Signs Temp Pulse Resp BP Pulse Ox 08/12/17 12:30 98.2 F 97 H 18 155/91 H 98 08/12/17 10:33 98 F 89 20 149/89 98 Temperature: Afebrile Blood Pressure: Normal Pulse: Regular Respiratory Rate: Normal Appearance: Positive for: Well-Appearing, Non-Toxic, Comfortable Pain Distress: None Mental Status: Positive for: Alert and Oriented X 3 - Systems Exam Head: Present: Atraumatic, Normocephalic, Other (tenderness to chin; remainder of mandiable is non-tender). No: Tenderness, Contusion, Swelling, Ecchymosis, Abrasion, Laceration Pupils: Present: PERRL Mouth: Present: Moist Mucous Membranes Neck: Present: Normal Range of Motion. No: MIDLINE TENDERNESS, Paraspinal Tenderness Respiratory/Chest: Present: Clear to Auscultation, Good Air Exchange. No: Respiratory Distress, Accessory Muscle Use Cardiovascular: Present: Regular Rate and Rhythm, Normal S1, S2. No: Murmurs Abdomen: Present: Normal Bowel Sounds. No: Tenderness, Distention, Peritoneal Signs Neurological: Present: GCS=15, Speech Normal Skin: Present: Warm, Dry, Normal Color. No: Rashes Psychiatric: Present: Alert, Oriented x 3, Normal Insight, Normal Concentration Medical Decision Making ED Course and Treatment: 08/12/17 11:25 Progress Notes: EKG: Ordered, reviewed, and independently interpreted the EKG. Demand Pace maker underline rhythm appears to be atrial fibrillation with right bundle branch block. EKG appears to be similar with prior EKG on 03/07/17. 08/12/17 14:08 pt reports pain is improved. disc results, plan for f/u, rtr. - RAD Interpretation Radiology Orders: 08/12/17 10:50 HEAD W/O CONTRAST [CT] Stat ORBITS/ FACIALS W/O CONTRAST [CT] Stat - Medication Orders Current Medication Orders: Discontinued Medications Acetaminophen (Tylenol 325mg Tab) 975 mg PO STAT STA Stop: 08/12/17 10:52 Last Admin: 08/12/17 11:09 Dose: 975 mg MAR Pain/Vitals Document 08/12/17 11:09 IT (Rec: 08/12/17 11:10 IT [id number]) Pain Reassessment Is This A Pain ReAssessment? No Sleep Is patient sleeping during reassessment? No Presence of Pain Presence of Pain Yes Pain Scale Used Pain Scale Used Numeric Location Left, Right or Bilateral Bilateral Pain Location Body Site chin Description Constant Intensity 8 Scale Used Numeric Pain Behavior Withdrawal from Touch Facial Grimacing - Scribe Statement The provider has reviewed the documentation as recorded by the Scribe Fannie Vance Provider Scribe Attestation: All medical record entries made by the Scribe were at my direction and personally dictated by me. I have reviewed the chart and agree that the record accurately reflects my personal performance of the history, physical exam, medical decision making, and the department course for this patient. I have also personally directed, reviewed, and agree with the discharge instructions and disposition. Disposition/Present on Arrival - Present on Arrival Any Indicators Present on Arrival: No History of DVT/PE: No History of Uncontrolled Diabetes: No Urinary Catheter: No History of Decub. Ulcer: No History Surgical Site Infection Following: None - Disposition Have Diagnosis and Disposition been Completed?: Yes Diagnosis: Chin contusion Disposition: HOME/ ROUTINE Disposition Time: 14:08 Condition: GOOD Forms: [employer] (Albanian)
--- NOTE | 2017-08-12 12:01 | CT ---
PROCEDURE: CT HEAD WITHOUT CONTRAST. HISTORY: fall COMPARISON: None available. TECHNIQUE: Axial computed tomography images were obtained through the head/brain without intravenous contrast. Radiation dose: Total exam DLP = 726.57 mGy-cm. This CT exam was performed using one or more of the following dose reduction techniques: Automated exposure control, adjustment of the mA and/or kV according to patient size, and/or use of iterative reconstruction technique. FINDINGS: HEMORRHAGE: No intracranial hemorrhage. BRAIN: No mass effect or edema. Patchy deep and subcortical white matter lucency consistent with age-related microvascular ischemic change. 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 No evidence of acute infarct. VENTRICLES: Unremarkable. No hydrocephalus. CALVARIUM: Unremarkable. PARANASAL SINUSES: Unremarkable as visualized. No significant inflammatory changes. MASTOID AIR CELLS: Unremarkable as visualized. No inflammatory changes. OTHER FINDINGS: None. IMPRESSION: No intracranial mass, hemorrhage or evidence of acute infarct. Chronic white matter microvascular ischemic change. 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
[2017-08-12 12:37] VITALS: RESP 18; TEMP 98.2
--- NOTE | 2017-08-12 13:46 | CT ---
PROCEDURE: CT ORBITS WITHOUT CONTRAST. HISTORY: fall hit chin please include mandible COMPARISON: None available. TECHNIQUE: Axial CT images of the orbits were obtained. Coronal and sagittal reformats were generated. Radiation dose: Total exam DLP = 496.35 mGy-cm. This CT exam was performed using one or more of the following dose reduction techniques: Automated exposure control, adjustment of the mA and/or kV according to patient size, and/or use of iterative reconstruction technique. FINDINGS: RIGHT ORBIT: RIGHT BONY ORBIT: Normal. RIGHT INTRAORBITAL STRUCTURES: Globe: Normal. Extraocular muscles: Normal. Post septal space: Normal. Optic Nerve: Normal. Lacrimal Apparatus: Normal. RIGHT PRESEPTAL SOFT TISSUES: Normal. LEFT ORBIT: LEFT BONY ORBIT: Normal. LEFT INTRAORBITAL STRUCTURES: Globe: Normal. Extraocular muscles: Normal. Post septal space: Normal Optic Nerve: Normal. . Lacrimal Apparatus: Normal. LEFT PRESEPTAL SOFT TISSUES: Normal. OTHER: Left maxillary sinus significant for mild hypoplasia. There is a circumscribed homogeneous fatty attenuation within the inferior left maxillary antrum likely developmental, possibly invaginated facial fat through a bony defect seen in the left maxilla. This is chronic in nature. Mild chronic frontal and left maxillary sinusitis. There is no evidence of mandibular fracture. 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 There is remodeling of the mandibular condyles bilaterally. IMPRESSION: No acute fracture. 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 Mild chronic frontal and left maxillary sinusitis. Degenerative arthritis of both temporomandibular joints.
[2017-08-12 14:36] VITALS: BP 151/81; PULSE 98
--- NOTE | 2017-08-13 07:46 | CARD ---
APPROVED REPORT EKG Measurement Heart [id number] <Conclusion> A. Fib. with V. paced beats and PVC's RBBB STTW changes
== END 2017-08-12 14:36 | disposition home or self-care (01) ==
LOC: ED 10:27
DX: S00.83XA Contusion of other part of head, initial encounter (principal); W06.XXXA Fall from bed, initial encounter; Y92.009 Unspecified place in unspecified non-institutional (private) residence as the place of occurrence of the external cause; I10 Essential (primary) hypertension

== ENCOUNTER 2017-08-19 19:56 | Inpatient (IN) | payer OTHER, MEDICAID ==
[2017-08-19 20:00] VITALS: BMI 30.2
[2017-08-19 20:35] LABS: BASO # 0.02 K/mm3 (0.0-2.0); BASO % 0.3 % (0.0-3.0); EOS # 0.2 (0.0-0.7); EOS % 2.3 % (1.5-5.0); GRAN # 3.69 (1.4-6.5); GRAN % 50.2 % (50.0-68.0); LYMPH # 2.5 (1.2-3.4); LYMPH % 33.7 % (22.0-35.0); MEAN CELL VOLUME 95.2 fl (80.0-105.0); MEAN CORPUSCULAR HEMOGLOBIN 31.6 pg (25.0-35.0); MEAN CORPUSCULAR HGB CONC 33.2 g/dl (31.0-37.0); MEAN PLATELET VOLUME 10.3 fl (7.0-11.0); MONO % 13.5 % (1.0-6.0); RED CELL DISTRIBUTION WIDTH 13.7 % (11.5-14.5); WHITE BLOOD COUNT 7.4 10^3/ul (4.5-11.0)
[2017-08-19 20:43] LABS: ALB/GLOB RATIO 1.3 (1.1-1.8); BILIRUBIN,TOTAL 0.6 mg/dL (0.2-1.3); CALCIUM 8.9 mg/dL (8.4-10.5); POTASSIUM 4.4 mmol/L (3.6-5.0)
[2017-08-19 21:23] LABS: URINE BILIRUBIN NEGATIVE (NEGATIVE); URINE BLOOD TRACE-INTACT (NEGATIVE); URINE GLUCOSE (UA) NEGATIVE (NEGATIVE); URINE KETONE NEGATIVE (NEGATIVE); URINE LEUKOCYTE ESTERASE MODERATE Leu/uL (NEGATIVE); URINE PROTEIN NEGATIVE mg/dL (<30 mg/dL); URINE UROBILINOGEN 0.2 E.U./dL (<1 E.U./dL)
--- NOTE | 2017-08-19 21:23 | ED PDOC ---
Arrival/HPI <Jake Ramirez - Last Filed: 08/19/17 21:24> - General Historian: Patient - History of Present Illness Time/Duration: Prior to Arrival, 1 week Symptom Onset: Gradual Symptom Course: Worsening <Diana Triplett - Last Filed: 08/19/17 22:51> - General Chief Complaint: Medical Clearance Time Seen by Provider: 08/19/17 20:08 - History of Present Illness Narrative History of Present Illness (Text): 08/19/17 21:14 81yr old female with hx of chf presents today with Cough, and feeling anxious. pt states she took her medications today and just isnt feeling any better. pt states she has cough x 1 week. no dizziness or weakness. no other complaints. (Diana Triplett) Past Medical History - Provider Review Nursing Documentation Reviewed: Yes - Travel History Have you recently traveled outside [place] w/in the past 3 mons?: No - Infectious Disease Hx of Infectious Diseases: None - Tetanus Immunization Tetanus Immunization: Unknown - Cardiac Hx Cardiac Disorders: Yes Hx Hypertension: Yes Hx Pacemaker: Yes - Pulmonary Hx Respiratory Disorders: No - Neurological Hx Neurological Disorder: No - HEENT Hx HEENT Disorder: Yes Hx Cataracts: Yes (b/l sx) - Renal Hx Renal Disorder: No - Endocrine/Metabolic Hx Endocrine Disorders: No - Hematological/Oncological Hx Blood Disorders: No - Integumentary Hx Dermatological Disorder: Yes Other/Comment: bruise right arm, right thigh, left knee, left neck - Musculoskeletal/Rheumatological Hx Falls: Yes Hx Unsteady Gait: Yes (uses walker) - Gastrointestinal Hx Gastrointestinal Disorders: No - Genitourinary/Gynecological Other/Comment: hysterectomy - Psychiatric Hx Anxiety: Yes Hx Depression: Yes Hx Substance Use: No - Past Surgical History Past Surgical History: Non-Contributing - Surgical History Hx Orthopedic Surgery: Yes (left knee replacement, left shoulder sx) - Anesthesia Hx Anesthesia: Yes Hx Anesthesia Reactions: No Hx Malignant Hyperthermia: No - Suicidal Assessment Feels Threatened In Home Enviroment: No <Diana Triplett - Last Filed: 08/19/17 22:51> Family/Social History - Physician Review Nursing Documentation Reviewed: Yes Family/Social History: Unknown Family HX Smoking Status: Never Smoked Hx Alcohol Use: No Hx Substance Use: No <Diana Triplett - Last Filed: 08/19/17 22:51> Allergies/Home Meds <ShaniquaJake - Last Filed: 08/19/17 21:24> <TimayamiletDiana - Last Filed: 08/19/17 22:51> Allergies/Adverse Reactions: Allergies iv dye Allergy (Uncoded 08/12/17 10:38) SWELLING Home Medications: Home Meds Medication Instructions Recorded Confirmed clonazePAM [Klonopin] 0.5 mg PO DAILY PRN 04/24/14 08/12/17 Lisinopril [Zestril] 30 mg PO DAILY 03/07/17 08/12/17 Melatonin [Melatin] 1 tab PO DAILY 03/08/17 08/12/17 Sennosides [Senexon] 1 tab PO DAILY 03/08/17 08/12/17 Sertraline HCl 100 mg PO DAILY 03/08/17 08/12/17 amLODIPine [Norvasc] 10 mg PO DAILY 03/08/17 08/12/17 Review of Systems - Review of Systems Constitutional: absent: Fatigue, Fevers Respiratory: Cough. absent: SOB, Wheezing Cardiovascular: absent: Chest Pain, Palpitations Gastrointestinal: absent: Abdominal Pain, Nausea, Vomiting Genitourinary Female: absent: Dysuria, Frequency, Hematuria Musculoskeletal: absent: Arthralgias Skin: absent: Rash, Pruritis Neurological: absent: Headache, Dizziness Psychiatric: Anxiety. absent: Depression, Suicidal Ideation <Diana Triplett - Last Filed: 08/19/17 22:51> Physical Exam Vital Signs Reviewed: Yes Temperature: Afebrile Blood Pressure: Normal Pulse: Regular Respiratory Rate: Normal Appearance: Positive for: Well-Appearing, Non-Toxic, Comfortable Pain Distress: None Mental Status: Positive for: Alert and Oriented X 3 - Systems Exam Head: Present: Atraumatic Mouth: Present: Moist Mucous Membranes Neck: Present: Normal Range of Motion Respiratory/Chest: Present: Good Air Exchange, Rales. No: Clear to Auscultation , Respiratory Distress, Accessory Muscle Use, Rhonchi, Tender to Palpation Cardiovascular: Present: Regular Rate and Rhythm Abdomen: No: Tenderness, Distention, Rebound, Guarding Back: Present: Normal Inspection Lower Extremity: Present: Edema (1+) Neurological: Present: GCS=15 Skin: Present: Warm, Dry, Normal Color. No: Rashes Psychiatric: Present: Alert, Oriented x 3 <Diana Triplett - Last Filed: 08/19/17 22:51> Vital Signs Temp Pulse Resp BP Pulse Ox 08/19/17 20:08 98.1 F 80 18 146/79 98 Medical Decision Making <Jake Ramirez - Last Filed: 08/19/17 21:24> <Diana Triplett - Last Filed: 08/19/17 22:51> ED Course and Treatment: 08/19/17 22:26 81yr old female with chf. c/o vague anxiety complaints. also with cough x 1 week cbc; wnl cmp; bun; 29 trop; 0.02 bnp; 4060 ekg; demand pacemaker at 81 bpm right bundle branch block no st elevations cxr; wnl case discussed with dr. ramirez; will start patient on laxis 40mg IV and rocephin for UTI. case discussed with dr. orr; accepts observational status admission for CHF and UTI. case discussed with resident. impression; CHF, UTI admit observational status to tele (Diana Triplett) - Lab Interpretations Lab Results: 08/19/17 20:15 08/19/17 20:15 Lab Results 08/19/17 21:00: Urine Color Light yellow, Urine Appearance Clear, Urine pH 6.0, Ur Specific Butler 1.015, Urine Protein Negative, Urine Glucose (UA) Negative, Urine Ketones Negative, Urine Blood Trace-intact H, Urine Nitrate Negative, Urine Bilirubin Negative, Urine Urobilinogen 0.2, Ur Leukocyte Esterase Moderate H, Urine RBC 0 - 2, Urine WBC 5 - 10, Ur Epithelial Cells 4 - 5, Urine Bacteria Mod, Urine Other Fiber 08/19/17 20:15: WBC 7.4 D, RBC 3.99, Hgb 12.6, Hct 38.0, MCV 95.2, MCH 31.6, MCHC 33.2, RDW 13.7, Plt Count 102 L, MPV 10.3, Gran % 50.2, Lymph % (Auto) 33.7 , [place] % (Auto) 13.5 H, Eos % (Auto) 2.3, Baso % (Auto) 0.3, Gran # 3.69, Lymph # 2.5, [place] # 1.0 H, Eos # 0.2, Baso # 0.02 08/19/17 20:15: Sodium 136, Potassium 4.4, Chloride 99, Carbon Dioxide 27, Anion Gap 14, BUN 29 H, Creatinine 1.1, Est GFR ( Amer) 58, Est GFR (Non- Af Amer) 48, Random Glucose 110, Calcium 8.9, Total Bilirubin 0.6, AST 30, ALT 49, Alkaline Phosphatase 87, Lactate Dehydrogenase 786 H, Total Creatine Kinase 60, Troponin I 0.02, NT-Pro-B Natriuret Pep 4060 H, Total Protein 7.0, Albumin 4.0, Globulin 3.1, Albumin/Globulin Ratio 1.3 - RAD Interpretation Radiology Orders: 08/19/17 20:10 CHEST PORTABLE [RAD] Stat - Medication Orders Current Medication Orders: Discontinued Medications Furosemide (Lasix) 40 mg IVP STAT STA Stop: 08/19/17 22:17 Ceftriaxone Sodium (Rocephin 1 Gram Ivpb) 1 gm in 100 mls @ 200 mls/hr IVPB STAT STA PRN Reason: Protocol Stop: 08/19/17 22:45 - PA / FIELD ENGINEER / Resident Statement MIRANDA has reviewed & agrees with the documentation as recorded. MIRANDA has examined the patient and agrees with the treatment plan. <Jake Ramirez - Last Filed: 08/19/17 21:24> Disposition/Present on Arrival <Jake Ramirez - Last Filed: 08/19/17 21:24> - Present on Arrival Any Indicators Present on Arrival: No History of DVT/PE: No History of Uncontrolled Diabetes: No Urinary Catheter: No History of Decub. Ulcer: No History Surgical Site Infection Following: None - Disposition Have Diagnosis and Disposition been Completed?: Yes Disposition Time: 22:48 Patient Plan: Observation <Diana Triplett - Last Filed: 08/19/17 22:51> - Disposition Diagnosis: CHF (congestive heart failure), UTI (urinary tract infection) Disposition: HOSPITALIZED Patient Problems: Current Active Problems Problem Status Onset CHF (congestive heart failure) Acute UTI (urinary tract infection) Acute Condition: FAIR Discharge Instructions (ExitCare): Heart Failure (ED) Forms: [facility] (Mexican)
[2017-08-19 21:26] LABS: URINE APPEARANCE CLEAR (CLEAR); URINE COLOR LIGHT YELLOW (YELLOW)
[2017-08-19 21:41] LABS: TROPONIN I 0.02 ng/mL
[2017-08-19 22:13] LABS: URINE BACTERIA MOD (NEG); URINE RBC 0 - 2 /hpf (0-2)
[2017-08-19] MEDS ORDERED: cefTRIAXone 1 gm 1 GM/100 ML BAG IVPB STA (22:16)
--- NOTE | 2017-08-19 23:51 | CP.PCM.HP ---
<KASEY VILLARREAL - Last Filed: 08/20/17 00:54> History of Present Illness - History of Present Illness History of Present Illness: CC: Blurred vision, SOB HPI: Pt is an 81 yo F with PMH of CHF, HTN, atrial fibrillation, pacemaker placement, and open heart surgery due to valvular disease presents with a 1 day history of SOB. Pt is a poor historian as she cannot remember some of the details of her current HPI as well as her PMH. But this AM pt remembers taking her daily medications when she felt that her vision was more blurry than normal as well as becoming short of breath. Pt states that her symptoms are worse when lying supine. However, pt says she only uses one pillow when sleeping and does not elevate the head of her bed. Pt denies any alleviating factors. Pt denies any recent sick contacts. Currently, pt still feels short of breath and complains of non-productive cough. Pt denies any blurred vision at time of exam. Pt denies CP, n/v/d, fever, chills, sore throat, sinus pressure/pain, congestion, abdominal pain, dysuria, WADE, dizziness, or fatigue. PMD: Ded[place] PMH: CHF, HTN, A-fib, unknown valvular disease, depression/anxiety Surg: Open heart surgery for valvular disease, pacemaker placement FHx: Heart disease (mother) All: Contrast Dye SH: Denied tobacco, EtOH, and illicit drug use Medications: Klonopin 0.5 mg PO daily prn, Norvasc 10 mg PO daily, Sertraline 100 mg PO daily, Senexon 1 tab PO daily, Melatonin 1 tab PO daily, Lisinopril 30 mg PO daily, Lasix 40 mg PO BID, Coreg 6.25 mg PO BID Present on Admission - Present on Admission Any Indicators Present on Admission: No Review of Systems - Review of Systems All systems: reviewed and no additional remarkable complaints except (what is stated in hpi.) Past Patient History - Infectious Disease Hx of Infectious Diseases: None - Tetanus Immunizations Tetanus Immunization: Unknown - Past Social History Smoking Status: Never Smoked - CARDIAC Hx Cardiac Disorders: Yes Hx Hypertension: Yes Hx Pacemaker: Yes - PULMONARY Hx Respiratory Disorders: No - NEUROLOGICAL Hx Neurological Disorder: No - HEENT Hx HEENT Problems: Yes Hx Cataracts: Yes (b/l sx) - RENAL Hx Chronic Kidney Disease: No - ENDOCRINE/METABOLIC Hx Endocrine Disorders: No - HEMATOLOGICAL/ONCOLOGICAL Hx Blood Disorders: No - INTEGUMENTARY Hx Dermatological Problems: Yes Other/Comment: bruise right arm, right thigh, left knee, left neck - MUSCULOSKELETAL/RHEUMATOLOGICAL Hx Falls: Yes Hx Unsteady Gait: Yes (uses walker) - GASTROINTESTINAL Hx Gastrointestinal Disorders: No - GENITOURINARY/GYNECOLOGICAL Other/Comment: hysterectomy - PSYCHIATRIC Hx Anxiety: Yes Hx Depression: Yes Hx Substance Use: No - SURGICAL HISTORY Hx Orthopedic Surgery: Yes (left knee replacement, left shoulder sx) - ANESTHESIA Hx Anesthesia: Yes Hx Anesthesia Reactions: No Hx Malignant Hyperthermia: No Meds Allergies/Adverse Reactions: Allergies Allergy/AdvReac Type Severity Reaction Status Date / Time iv dye Allergy SWELLING Uncoded 08/12/17 10:38 Physical Exam - Constitutional Appears: No Acute Distress - Eye Exam Eye Exam: EOMI, Normal appearance, PERRL - ENT Exam ENT Exam: Mucous Membranes Moist - Neck Exam Neck exam: Positive for: Full Rom. Negative for: Lymphadenopathy, Tenderness, Thyromegaly Additional comments: no JVD - Respiratory Exam Respiratory Exam: Rales (b/l bases minor). absent: Accessory Muscle Use, Rhonchi, Wheezes, Respiratory Distress - Cardiovascular Exam Cardiovascular Exam: RRR. absent: Diastolic murmur, Gallop, Rubs, Systolic Murmur - GI/Abdominal Exam GI & Abdominal Exam: Soft. absent: Distended, Guarding, Organomegaly, Rebound, Tenderness - Extremities Exam Extremities exam: Positive for: pedal edema (2+/4 b/l) - Neurological Exam Neurological exam: Alert, CN II-XII Intact, Oriented x3 - Psychiatric Exam Psychiatric exam: Normal Affect, Normal Mood - Skin Skin Exam: Diaphoretic, Intact, Normal Color, Warm Results - Vital Signs Recent Vital Signs: Last Vital Signs Temp 98.1 F 08/19/17 20:08 Pulse 82 08/19/17 23:30 Resp 24 08/19/17 23:30 BP 146/79 08/19/17 20:08 Pulse Ox 99 08/19/17 23:30 - Labs Result Diagrams: 08/19/17 20:15 08/19/17 20:15 Assessment & Plan - Assessment and Plan (Free Text) Assessment: 81 yo female with PMH of HTN, atrial fibrillation, pacemaker placement, and open heart surgery due to reported valvular disease admitted for evaluation and treatment for CHF exacerbation and UTI. Plan: 1. CHF Exacerbation - CXR showed vascular congestion and cardiomegaly - BNP 4060 - Echo (02/2017): LVEF 30.6, septal and apical hypokinesis, prosthetic mitral valve stenosis, moderate pulm HTN, mild to mod aortic stenosis - Cardiology consulted - Cont home meds: Coreg, Lisinopril, Lasix - Strict I's and O's - Daily Weights 2. UTI - UA positive for leukocyte esterase and moderate bacteria - Rocephin 1 gm IVPB daily 3. HTN - Cont home meds: Coreg, Lisinopril 4. H/O depression/anxiety - Cont home meds: Klonopin, Zoloft GI/DVT PPx - Pepcid - SCDs - Protonix, Heparin CI due to thrombocytopenia Pt discussed in detail with Dr. Dan. David Villarreal, PGY1 <Bjorn Dan - Last Filed: 08/24/17 18:19> Results - Vital Signs Recent Vital Signs: Last Vital Signs Temp 98.8 F 08/23/17 09:07 Pulse 78 08/23/17 09:07 Resp 18 08/23/17 09:07 BP 139/78 08/23/17 09:25 Pulse Ox 97 08/23/17 10:00 - Labs Result Diagrams: 08/23/17 07:20 08/23/17 07:20 Attending/Attestation - Attestation I have personally seen and examined this patient.: Yes I have fully participated in the care of the patient.: Yes I have reviewed all pertinent clinical information: Yes Notes (Text): 08/24/17 18:18 Medical record note made by the resident after discussion with my direction and input after the patient was personally seen and examined by me. I have reviewed the chart and agree that the record accurately reflects by personal performance of the history, physical exam, data review, and medical decision-making, in the course for the patient. I have also personally directed the plan of care.
[2017-08-20 06:52] LABS: HEMATOCRIT 38.7 % (36.0-48.0); MEAN CELL VOLUME 95.3 fl (80.0-105.0); MEAN CORPUSCULAR HGB CONC 32.6 g/dl (31.0-37.0); MEAN PLATELET VOLUME 10.2 fl (7.0-11.0); RED CELL DISTRIBUTION WIDTH 13.6 % (11.5-14.5); WHITE BLOOD COUNT 6.6 10^3/ul (4.5-11.0)
[2017-08-20 07:05] LABS: ALB/GLOB RATIO 1.3 (1.1-1.8); ALKALINE PHOSPHATASE 80 U/L (38-126); ALT/SGPT 50 U/L (7-56); AST/SGOT 32 U/L (14-36); BILIRUBIN,TOTAL 0.6 mg/dL (0.2-1.3); BLOOD UREA NITROGEN 22 mg/dL (7-21); CARBON DIOXIDE 30 mmol/L (21-33); CHLORIDE 101 mmol/L (98-107); GFR AFRICAN-AMERICAN > 60; GLUCOSE,RANDOM 114 mg/dL (70-110); INR 1.02 (0.93-1.08); PARTIAL THROMBOPLASTIN TIME 23.6 Seconds (23.7-30.8); PHOSPHOROUS 3.8 mg/dL (2.5-4.5); POTASSIUM 3.9 mmol/L (3.6-5.0); SODIUM 140 mmol/L (132-148)
--- NOTE | 2017-08-20 08:51 | RAD ---
HISTORY: cough x 1 week COMPARISON: 03/07/2017 FINDINGS: LUNGS: The lungs are well inflated and clear. PLEURA: No significant pleural effusion identified, no pneumothorax apparent. CARDIOVASCULAR: There is mild cardiomegaly. Status post CABG. There is stable position of a left-sided dual lead transvenous permanent pacing device. OSSEOUS STRUCTURES: No significant abnormalities. VISUALIZED UPPER ABDOMEN: Normal. OTHER FINDINGS: None. IMPRESSION: No acute findings.
[2017-08-20] MEDS: cefTRIAXone 1 gm 1 GM/100 ML BAG IVPB SCH (09:46)
--- NOTE | 2017-08-20 10:12 | CARD ---
APPROVED REPORT EKG Measurement Heart [id number] <Conclusion> Demand pacemaker, interpretation is based on intrinsic rhythm A Fib Right bundle branch block Abnormal ECG
--- NOTE | 2017-08-20 11:26 | CP.PCM.PN ---
<Joe Aggarwal - Last Filed: 08/20/17 19:54> Subjective - Date & Time of Evaluation Date of Evaluation: 08/20/17 Time of Evaluation: 06:00 - Subjective Subjective: Patient seen and evaluated bedside. Patient was laying down, denies any chest pain, SOB, but has a cough. The cough was non productive. Patient denies any fever, sore throat, N/V/C/ diarrhea or any other complaints. Objective - Vital Signs/Intake and Output Vital Signs (last 24 hours): Temp Pulse Resp BP Pulse Ox 98.4 F 102 H 20 140/69 100 08/20/17 06:00 08/20/17 09:46 08/20/17 06:00 08/20/17 09:49 08/20/17 06:00 Intake and Output: 08/20/17 08/20/17 06:59 18:59 Intake Total 0 Output Total 1400 Balance -1400 - Medications Medications: Current Medications Albuterol/Ipratropium (Duoneb 3 Mg/0.5 Mg (3 Ml) Ud) 3 ml IH [id number] [facility] Amlodipine Besylate (Norvasc) 10 mg PO DAILY [facility] Last Admin: 08/20/17 09:49 Dose: 10 mg Carvedilol (Coreg) 6.25 mg PO BID [facility] Last Admin: 08/20/17 09:46 Dose: 6.25 mg Clonazepam (Klonopin) 0.5 mg PO DAILY PRN; Protocol PRN Reason: Anxiety Famotidine (Pepcid) 40 mg PO HS [facility] Furosemide (Lasix) 40 mg PO BID [facility] Last Admin: 08/20/17 09:47 Dose: 40 mg Ceftriaxone Sodium (Rocephin 1 Gram Ivpb) 1 gm in 100 mls @ 100 mls/hr IVPB DAILY [facility] PRN Reason: Protocol Last Admin: 08/20/17 09:46 Dose: 100 mls/hr Lisinopril (Zestril) 30 mg PO DAILY [facility] Last Admin: 08/20/17 09:46 Dose: 30 mg Sertraline HCl (Zoloft) 100 mg PO DAILY [facility] Last Admin: 08/20/17 09:46 Dose: 100 mg - Labs Labs: 08/20/17 06:00 08/20/17 06:00 PT 11.0 Seconds (9.9-11.8) 08/20/17 06:00 INR 1.02 (0.93-1.08) 08/20/17 06:00 APTT 23.6 Seconds (23.7-30.8) L 08/20/17 06:00 - Constitutional Appears: Non-toxic - Head Exam Head Exam: ATRAUMATIC, NORMAL INSPECTION, NORMOCEPHALIC - Eye Exam Eye Exam: EOMI, PERRL - ENT Exam ENT Exam: Mucous Membranes Moist, Normal Exam - Respiratory Exam Respiratory Exam: NORMAL BREATHING PATTERN - Cardiovascular Exam Cardiovascular Exam: Irregular Rhythm - GI/Abdominal Exam GI & Abdominal Exam: Normal Bowel Sounds - Extremities Exam Extremities Exam: Pedal Edema Additional comments: pedal edema 2/4 bilterally - Back Exam Back Exam: NORMAL INSPECTION - Neurological Exam Neurological Exam: Alert, Awake, Oriented x3 - Psychiatric Exam Psychiatric exam: Normal Mood - Skin Skin Exam: Normal Color Assessment and Plan - Assessment and Plan (Free Text) Assessment: 81 yo female with PMH of HTN, atrial fibrillation, pacemaker placement, and open heart surgery due to reported valvular disease admitted for evaluation and treatment for CHF exacerbation and UTI. Plan: 1. CHF Exacerbation - CXR showed vascular congestion and cardiomegaly - BNP 4060 - Echo (02/2017): LVEF 30.6, septal and apical hypokinesis, prosthetic mitral valve stenosis, moderate pulm HTN, mild to mod aortic stenosis - Cardiology consulted - Cont home meds: Coreg, Lisinopril, Lasix - Strict I's and O's - Daily Weights -Patient given duoneb treatment -Repeat Cxray ordered -Lower extremity doppler US ordered -initial trops .02, series ordered 2. UTI - UA positive for leukocyte esterase and moderate bacteria - Rocephin 1 gm IVPB daily continue -urine and blood cultures pending 3. HTN - Cont home meds: Coreg, Lisinopril -140/69 continue to monitor 4. H/O depression/anxiety - Cont home meds: Klonopin, Zoloft GI/DVT PPx - Pepcid - SCDs - Protonix, Heparin CI due to thrombocytopenia Pt discussed in detail with Dr. Dan. <Bjorn Dan - Last Filed: 08/24/17 18:21> Objective - Vital Signs/Intake and Output Vital Signs (last 24 hours): Temp Pulse Resp BP Pulse Ox 98.8 F 78 18 139/78 97 08/23/17 09:07 08/23/17 09:07 08/23/17 09:07 08/23/17 09:25 08/23/17 10:00 - Labs Labs: 08/23/17 07:20 08/23/17 07:20 PT 11.0 Seconds (9.9-11.8) 08/20/17 06:00 INR 1.02 (0.93-1.08) 08/20/17 06:00 APTT 23.6 Seconds (23.7-30.8) L 08/20/17 06:00 Attending/Attestation - Attestation I have personally seen and examined this patient.: Yes I have fully participated in the care of the patient.: Yes I have reviewed all pertinent clinical information, including history, physical exam and plan: Yes Notes (Text): 08/24/17 18:21 Medical record note made by the resident after discussion with my direction and input after the patient was personally seen and examined by me. I have reviewed the chart and agree that the record accurately reflects by personal performance of the history, physical exam, data review, and medical decision-making, in the course for the patient. I have also personally directed the plan of care.
--- NOTE | 2017-08-20 14:42 | CON ---
DATE: 08/20/2017 CONSULTATION: Shortness of breath, CHF. HISTORY OF PRESENT ILLNESS: This is an 81-year-old woman admitted yesterday complaining of cough and shortness of breath, also with blurred vision. She is a very limited historian, much of my consultation is based on the current hospital record and prior visits. She was admitted through the emergency room with congestive heart failure. She was given IV Lasix. This morning she is resting in bed comfortably, but she is a limited historian. She denies shortness of breath at this time. There was no chest pain reported. There was no orthopnea, PND, syncope, presyncope, lightheadedness, dizziness, vertigo, palpitation, fever, chills, sputum production, hemoptysis, abdominal pain, nausea, vomiting, diarrhea, constipation or melena. PAST MEDICAL HISTORY: Notable for congestive heart failure. She has had prior coronary bypass surgery with mitral valve replacement. She has chronic AFib, a defibrillator in place, hypertension, hyperlipidemia, depression, anxiety. PAST SURGICAL HISTORY: Including left shoulder surgery, total knee replacement, hysterectomy and cataract surgery. 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 MEDICATION: At the time of admission include Coreg, Klonopin, Lasix, melatonin, Norvasc, Senexon, sertraline, lisinopril. ALLERGIES: SHE NOTES AN ALLERGY TO IV CONTRAST DYE. SOCIAL HISTORY: She lives at home. She does not smoke cigarettes. She does not drink alcohol. FAMILY HISTORY: Notable for heart disease. REVIEW OF SYSTEMS: A 10-point review of systems is very limited because of her mental status. PHYSICAL EXAMINATION GENERAL: She is an elderly woman lying flat in bed, on telemetry, in no acute distress. VITAL SIGNS: She has a predominantly ventricular paced rhythm at 80 beats per minute. She is afebrile. Blood pressure 146/90, respirations 20, O2 sat 96% to 100% on room air. HEENT: Reveals no neck vein distention, thyromegaly or carotid bruits. Mucus membranes moist. Conjunctivae pink. NECK: Supple. LUNG: Lung mcclain; few scattered rhonchi. HEART: Revealed irregular rhythm. Normal first and second heart sound. Soft systolic murmur along the left sternal border. ABDOMEN: Soft. Bowel sounds present. No mass, organomegaly, tenderness, rebound or guarding. No CVA tenderness. No palpable abdominal aortic aneurysm. EXTREMITIES: Revealed moderate edema both lower extremities. NEUROLOGIC: She is awake, but did not cooperate for questioning. PSYCHIATRIC: Normal mood and affect. SKIN: Warm and dry. No rash or cellulitis. LABORATORY DATA AND IMAGING: A portable chest x-ray reveals no acute findings. There is cardiomegaly by my reading, and there is a defibrillator in place, that is, there is a biventricular defibrillator in place. EKG demonstrates predominantly ventricular pacing with atrial fibrillation, has the underlying rhythm. It is basically unchanged from a prior EKG. CBC is unremarkable. PT/INR, PTT unremarkable. Electrolyte, BUN and creatinine, blood sugar unremarkable. Magnesium 2.0. LFTs unremarkable. CK 60, troponin 0.02. BMP 4060. Urinalysis is noted. IMPRESSION: The patient is an 81-year-old woman admitted with vague symptoms, including cough, shortness of breath, treated for congestive heart failure and seems improved this morning without shortness of breath, cough or chest pain. She has known cardiac disease, status post coronary bypass surgery with mitral valve replacement. She has a defibrillator in place. She is in chronic atrial fibrillation, not anticoagulated probably because of altered mental status and fall risk. 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 At this time, I agree with current plans. She is on telemetry. Her outpatient oral medications have been resumed, including Coreg, Klonopin, Lasix, Norvasc, lisinopril, sertraline. She is also getting Pepcid, Rocephin and albuterol and ipratropium. Urine output was 1400 mL. At this time, I will review her old records. We will continue her current course of therapy. I will try to find out who follows her for defibrillator and remains to have this checked if it has not been checked lately. We will have to clarify her baseline mental status. Long-term anticoagulation should be considered during this admission, but probably the risk of chronic anticoagulation would be too high. I will follow along with you. I will make additional recommendations based on the clinical course. We will monitor I's and O's, daily lab work. She can be out of bed to a chair. Maldonado Mancuso MD MTDJeff
--- NOTE | 2017-08-20 19:17 | US ---
HISTORY: Leg pain and swelling. Evaluate for DVT PHYSICIAN(S): Phill Stapleton MD. TECHNIQUE: Duplex sonography and color-flow Doppler with graded compression were used to evaluate the deep venous systems of both lower extremities. FINDINGS: The visualized deep venous systems of both lower extremities are sonographically normal and compressible. Normal wave forms and augmentation are seen. There is no sonographic evidence for deep venous thrombosis in the visualized segments of both lower extremities. There is a complex 1.6 x 4.2 cm fluid collection in the popliteal fossa, consistent with a Boateng's cyst. IMPRESSION: No sonographic evidence for deep venous thrombosis in the visualized segments of both lower extremities.
[2017-08-20] MEDS: Albuterol-Ipratrop 3 mg / 0.5 (3 ml) UD IH SCH (19:49)
[2017-08-21] MEDS: Albuterol-Ipratrop 3 mg / 0.5 (3 ml) UD IH SCH ×4 (03:00→20:50)
[2017-08-21 07:50] LABS: HEMATOCRIT 42.1 % (36.0-48.0); MEAN CORPUSCULAR HEMOGLOBIN 31.2 pg (25.0-35.0); MEAN CORPUSCULAR HGB CONC 32.8 g/dl (31.0-37.0); MEAN PLATELET VOLUME 10.4 fl (7.0-11.0); RED CELL DISTRIBUTION WIDTH 13.1 % (11.5-14.5); WHITE BLOOD COUNT 7.7 10^3/ul (4.5-11.0)
--- NOTE | 2017-08-21 07:58 | CP.PCM.PN ---
Subjective - Date & Time of Evaluation Date of Evaluation: 08/21/17 Time of Evaluation: 07:00 - Subjective Subjective: Stable on 2R. No CP or SOB. V/S noted. V. Paced PE: Lungs: few rhonchi Cor. : S1S2, sys. murmur Abd.: soft Ext: no edema Neuro.: alert I/O= 720/1600 CXR 08/20 noted. No interp yet. No CHF by my reading. Labs 08/20 noted. trops all neg. BC x2 NG at 24 hrs. Objective - Vital Signs/Intake and Output Vital Signs (last 24 hours): Temp Pulse Resp BP Pulse Ox 98.6 F 92 H 18 154/102 H 100 08/21/17 06:00 08/21/17 06:00 08/21/17 06:00 08/21/17 06:00 08/21/17 06:00 Intake and Output: 08/21/17 08/21/17 06:59 18:59 Intake Total 720 Output Total 1600 Balance -880 - Medications Medications: Current Medications Albuterol/Ipratropium (Duoneb 3 Mg/0.5 Mg (3 Ml) Ud) 3 ml IH [id number] [facility] Last Admin: 08/21/17 03:00 Dose: Not Given Amlodipine Besylate (Norvasc) 10 mg PO DAILY [facility] Last Admin: 08/20/17 09:49 Dose: 10 mg Carvedilol (Coreg) 6.25 mg PO BID [facility] Last Admin: 08/20/17 18:06 Dose: 6.25 mg Clonazepam (Klonopin) 0.5 mg PO DAILY PRN; Protocol PRN Reason: Anxiety Famotidine (Pepcid) 40 mg PO HS [facility] Last Admin: 08/20/17 21:52 Dose: 40 mg Furosemide (Lasix) 40 mg PO BID [facility] Last Admin: 08/20/17 18:07 Dose: 40 mg Ceftriaxone Sodium (Rocephin 1 Gram Ivpb) 1 gm in 100 mls @ 100 mls/hr IVPB DAILY [facility] PRN Reason: Protocol Last Admin: 08/20/17 09:46 Dose: 100 mls/hr Lisinopril (Zestril) 30 mg PO DAILY [facility] Last Admin: 08/20/17 09:46 Dose: 30 mg Sertraline HCl (Zoloft) 100 mg PO DAILY [facility] Last Admin: 08/20/17 09:46 Dose: 100 mg - Labs Labs: PT 11.0 Seconds (9.9-11.8) 08/20/17 06:00 INR 1.02 (0.93-1.08) 08/20/17 06:00 APTT 23.6 Seconds (23.7-30.8) L 08/20/17 06:00 Assessment and Plan - Assessment and Plan (Free Text) Assessment: SOB/CHF 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 eval: baseline MS? Continue cureent cardiac meds.
[2017-08-21 08:02] LABS: ALB/GLOB RATIO 1.3 (1.1-1.8); ALKALINE PHOSPHATASE 90 U/L (38-126); ALT/SGPT 51 U/L (7-56); AST/SGOT 27 U/L (14-36); BILIRUBIN,TOTAL 0.8 mg/dL (0.2-1.3); BLOOD UREA NITROGEN 22 mg/dL (7-21); CARBON DIOXIDE 30 mmol/L (21-33); CHLORIDE 96 mmol/L (95-110); GFR AFRICAN-AMERICAN > 60; GLUCOSE,RANDOM 131 mg/dL (70-110); POTASSIUM 3.7 mmol/L (3.6-5.0); SODIUM 136 mmol/L (132-148); TOTAL PROTEIN 7.3 g/dL (5.8-8.3)
--- NOTE | 2017-08-21 08:53 | RAD ---
HISTORY: COMPARISON: 08/19/2017 TECHNIQUE: Chest PA and lateral FINDINGS: LINES AND TUBES: None. LUNG AND PLEURA: The lungs are well inflated. There is mild pulmonary venous congestion. HEART AND MEDIASTINUM: There is mild cardiomegaly. Status post CABG. There is stable position of left-sided dual lead transvenous permanent pacing device. The hilar and mediastinal contours are within normal limits. SKELETAL STRUCTURES: The bony structures are within normal limits for the patient's age. VISUALIZED UPPER ABDOMEN: Normal. OTHER FINDINGS: None. IMPRESSION: Mild pulmonary venous congestion. Persistent mild cardiomegaly.
[2017-08-21] MEDS: cefTRIAXone 1 gm 1 GM/100 ML BAG IVPB SCH (09:18)
--- NOTE | 2017-08-21 13:53 | CP.PCM.PN ---
Subjective - Date & Time of Evaluation Date of Evaluation: 08/21/17 Time of Evaluation: 13:50 - Subjective Subjective: Patient seen and evaluated bedside. Patient was laying down comfortably and saying she feels better than yesterday. She denies any chest pain, SOB, cough. Patient denies any fever, sore throat, N/V/C/ diarrhea or any other complaints. Objective - Vital Signs/Intake and Output Vital Signs (last 24 hours): Temp Pulse Resp BP Pulse Ox 98.3 F 85 18 120/59 L 100 08/21/17 12:00 08/21/17 12:00 08/21/17 12:00 08/21/17 12:00 08/21/17 06:00 Intake and Output: 08/21/17 08/21/17 06:59 18:59 Intake Total 720 100 Output Total 1600 Balance -880 100 - Medications Medications: Current Medications Albuterol/Ipratropium (Duoneb 3 Mg/0.5 Mg (3 Ml) Ud) 3 ml IH [id number] [facility] Last Admin: 08/21/17 03:00 Dose: Not Given Amlodipine Besylate (Norvasc) 10 mg PO DAILY [facility] Last Admin: 08/21/17 09:17 Dose: 10 mg Carvedilol (Coreg) 6.25 mg PO BID [facility] Last Admin: 08/21/17 09:17 Dose: 6.25 mg Clonazepam (Klonopin) 0.5 mg PO DAILY PRN; Protocol PRN Reason: Anxiety Famotidine (Pepcid) 40 mg PO HS [facility] Last Admin: 08/20/17 21:52 Dose: 40 mg Furosemide (Lasix) 40 mg PO BID [facility] Last Admin: 08/21/17 09:17 Dose: 40 mg Ceftriaxone Sodium (Rocephin 1 Gram Ivpb) 1 gm in 100 mls @ 100 mls/hr IVPB DAILY [facility] PRN Reason: Protocol Last Admin: 08/21/17 09:18 Dose: 100 mls/hr Lisinopril (Zestril) 30 mg PO DAILY [facility] Last Admin: 08/21/17 09:17 Dose: 30 mg Sertraline HCl (Zoloft) 100 mg PO DAILY [facility] Last Admin: 08/21/17 09:17 Dose: 100 mg - Labs Labs: 08/21/17 07:33 08/21/17 07:33 PT 11.0 Seconds (9.9-11.8) 08/20/17 06:00 INR 1.02 (0.93-1.08) 08/20/17 06:00 APTT 23.6 Seconds (23.7-30.8) L 08/20/17 06:00 - Constitutional Appears: Non-toxic, No Acute Distress - Head Exam Head Exam: ATRAUMATIC, NORMAL INSPECTION, NORMOCEPHALIC - Eye Exam Eye Exam: EOMI, Normal appearance, PERRL - ENT Exam ENT Exam: Normal Exam - Neck Exam Neck Exam: absent: Lymphadenopathy - Respiratory Exam Respiratory Exam: Clear to Ausculation Bilateral, NORMAL BREATHING PATTERN - Cardiovascular Exam Cardiovascular Exam: Irregular Rhythm - GI/Abdominal Exam GI & Abdominal Exam: absent: Tenderness - Extremities Exam Extremities Exam: Pedal Edema Additional comments: 1+ pitting edema bilaerally - Neurological Exam Neurological Exam: Alert, Awake - Psychiatric Exam Psychiatric exam: Agitated, Anxious - Skin Skin Exam: Normal Color Assessment and Plan - Assessment and Plan (Free Text) Assessment: 81 yo female with PMH of HTN, atrial fibrillation, defibrillator placement, and open heart surgery due to reported valvular disease and replaced mitral valve admitted for evaluation and treatment for CHF exacerbation and UTI. She is being treated for her CHF exascerbation Plan: 1. CHF Exacerbation -repeat CXR (08/20/2017) showed mild pulm vascular congestion and persistent mild cardiomegaly, minimal change from prior -BNP 4060 (08/20/2017) -Echo (02/2017): LVEF 30%, septal and apical hypokinesis, prosthetic mitral valve stenosis, moderate pulm HTN, mild to mod aortic stenosis -Cardiology consulted -Cont home meds: carvedilol, Lisinopril, amlodipine, furosemide -Strict I's and O's: in= 720 ml; out = 1600 ml -Daily Weights -Patient given duoneb treatment -Lower extremity doppler US negative for DVTs - Trops negative x3 2. UTI -UA positive for leukocyte esterase and moderate bacteria -Rocephin 1 gm IVPB daily continue -urine and blood cultures pending; blood cultures no growth after 24 hours; gram stain pending 3. HTN -Cont home meds: Coreg, Lisinopril -120/59 continue to monitor 4. H/O depression/anxiety -Cont home meds: Klonopin, Zoloft 5. Possible underlying dementia -Psych consult 6. GI/DVT PPx -Pepcid -SCDs -Protonix, Heparin CI due to thrombocytopenia
[2017-08-22] MEDS: Albuterol-Ipratrop 3 mg / 0.5 (3 ml) UD IH SCH ×4 (02:30→22:20)
[2017-08-22 07:17] LABS: MEAN CELL VOLUME 95.1 fl (80.0-105.0); MEAN CORPUSCULAR HEMOGLOBIN 31.2 pg (25.0-35.0); MEAN CORPUSCULAR HGB CONC 32.8 g/dl (31.0-37.0); MEAN PLATELET VOLUME 10.4 fl (7.0-11.0); RED CELL DISTRIBUTION WIDTH 13.3 % (11.5-14.5); WHITE BLOOD COUNT 7.5 10^3/ul (4.5-11.0)
[2017-08-22 07:52] LABS: ALB/GLOB RATIO 1.2 (1.1-1.8); BILIRUBIN,TOTAL 0.6 mg/dL (0.2-1.3); CALCIUM 8.8 mg/dL (8.4-10.5); TOTAL PROTEIN 6.7 g/dL (5.8-8.3)
--- NOTE | 2017-08-22 08:01 | CON ---
DATE: 08/21/2017 HISTORY OF PRESENT ILLNESS: The patient is 81-year-old female with history of CHF. The patient was admitted on the medical side for cough as well as shortness of breath. Psych consult was called for evaluation of mood symptoms. The patient has history of depression. The patient is on psychotropic medication. The patient was seen and examined. The patient presented to be alert. The patient reported that her breathing is better. The patient reported that she has history of depression. Her primary care physician, Dr. Chowdhury giving her prescription for Zoloft as well as Klonopin. The patient said that she attends [facility]. The patient said that she does not feel depressed. She feels depressed only when she is alone at home and majority of the time this is over the weekend that is why she called family very often and asked them to come to the house. The patient in addition has a 4 hours the day of home health aide, but the patient wants to have more services over the weekend. Collateral information was obtained from the patient's son, Padilla, who confirm all the information. Padilla denied that the patient was verbalized any thoughts of harming herself. He denied that the patient ever try to kill herself in the past. Reported that the patient was compliant with the medications and followup appointments, but family wants to have more services. This policy writer sales discussed case with Geophysical Prospecting Surveyor and referred to the Case Management and Geophysical Prospecting Surveyor for follow up on this patient. Besides that, vital signs are stable. Temperature within normal limits. Pulse is 90, blood pressure 146/69. MEDICATIONS: Reviewed. The patient is on DuoNeb, Norvasc, Coreg, Rocephin, Klonopin 0.5 mg daily, Pepcid, Lasix, Zestril, Zoloft 100 mg daily. The patient reported that she tolerates medication well and no side effects so observed or reported. LABORATORY DATA: Reviewed. Urinalysis showed leukocyte esterase positive. Microbiology; no growth. PAST PSYCHIATRIC HISTORY: Denied any admissions. Denied suicidal attempts in the past. MENTAL STATUS EXAM: The patient presented to be alert and oriented, pleasant, cooperative. Mood described as I am feeling better now. Affect was reactive. Mood congruent. Thought process was coherent and goal directed. Thought content, the patient denied visual, auditory, tactile hallucinations. Denied paranoid ideation. Patient denied thoughts of harming herself or others. Denied intents or plan. Insight and judgment fair. Impulses are well controlled. IMPRESSION: As per history, the patient has major depressive disorder. The patient has multiple medical issues. Please see notes for more detailed information. The patient was admitted on the medical site for a CHF, urinary tract infection as well as altered mental status and cough. PLAN: Continue current management. Continue current medication. The patient does not have any signs of confusion. Collaterals were obtained from the patient's son, Padilla. The patient was attending [employer] day program and the patient was functioning at her baseline recently but the patient's family wants to have more services. Social work referral was made meanwhile there is no signs of agitation. There is no signs of suicidality or homicidality. There is no signs of any confusions at present moment. This policy writer sales will sign off. Should you have any questions give me a call back. The patient pose no imminent danger to self or others. Should you have any questions give me a call back. Chrystal Mohamud MD
[2017-08-22] MEDS: cefTRIAXone 1 gm 1 GM/100 ML BAG IVPB SCH (10:21)
--- NOTE | 2017-08-22 12:04 | PN ---
DATE: 08/22/2017 SUBJECTIVE: The patient seen sitting in bed on telemetry. She is currently comfortable. She denies any dyspnea at the present time. MEDICATIONS: Her current medications include carvedilol 6.25 mg twice a day, DuoNeb inhaler, Klonopin, Lasix 40 mg p.o. twice a day, Norvasc 10 mg daily, Pepcid 40 mg daily, Zestril 30 mg daily, and Zoloft 100 mg daily. PHYSICAL EXAMINATION GENERAL: She is elderly woman appears comfortable at the present time. VITAL SIGNS: Her blood pressure 126/70, pulse of 70 to 100, respirations are 14. She is afebrile. HEENT: No JVD. CHEST: Bilateral scattered rhonchi. HEART: PMI displaced laterally with systolic murmur at the low left sternal border and apex. ABDOMEN: Soft, nontender, normoactive bowel sounds. EXTREMITIES: No edema. IMPRESSION: 1. Coronary artery disease status post prior bypass surgery and mitral valve replacement. 2. Prosthetic mitral valve stenosis. 3. Recent decompensated congestive heart failure, acute on chronic, combined systolic and diastolic. 4. Atrial fibrillation. 5. Hypertension. Rest of problem as noted. RECOMMENDATIONS: Her beta-jaya dose will be increased as tolerated. Diuretic therapy will continue. Medical management for her cardiac problems at this time appears most reasonable. If possible increasing her beta-jaya and reducing or discontinuation of her amlodipine will be helpful. From cardiac standpoint she appears stable for discharge home within the next 24 hours. Further reevaluation of the risks and benefits of anticoagulant therapy should be discussed. We will continue to follow and make further recommendations as appropriate. Yusuf Valentin MD
--- NOTE | 2017-08-22 13:31 | HP ---
Chief Complaint: code star responded to code star in 275.1 pt is a 81 yr old female with pmh sig for chf, cad, htn admit chf who fell while atempting to use the commode at bedside Patient seen at bedside after "sliding off commode" and fell to the floor on her buttocks per patietn reports per Nurse she attempted to prevent fall and patient did not hit head vS 114/65, hr 89 patient denied hitting head and on exam is in no acute distress and is on the bed with nursing staff assisting her to lay down Pt is awake and alert, NAD, speaking in full sentences denies n/v/sob/cp On exam there is no acute trauma noted to buttocks AAOx3, NAD pt denies pain but admits to hitting her bottom on the floor Will order xray of LS for completeness Continue to monitor for falls Discuss with mcleod MD - Dr Shah will follow lS xray Olinda Jiang APN. 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 Physical Exam - Exam Vital Signs: Vital Signs (72 hours) 08/20/17 08/20/17 08/20/17 18:00 18:06 18:07 Temperature Pulse Rate 96 H 97 H Respiratory Rate Blood Pressure 161/77 H 161/77 H O2 Sat by Pulse Oximetry 08/20/17 08/20/17 08/21/17 22:00 23:51 01:50 Temperature 98.6 F Pulse Rate 86 93 H 91 H Respiratory 20 Rate Blood Pressure 141/76 O2 Sat by Pulse Oximetry 08/21/17 08/21/17 08/21/17 06:00 09:17 10:00 Temperature 98.6 F Pulse Rate 92 H 90 100 H Respiratory 18 Rate Blood Pressure 154/102 H 146/69 O2 Sat by Pulse 100 Oximetry 08/21/17 08/21/17 08/21/17 12:00 14:00 17:18 Temperature 98.3 F Pulse Rate 85 84 81 Respiratory 18 Rate Blood Pressure 120/59 L 121/68 O2 Sat by Pulse Oximetry 08/21/17 08/21/17 08/22/17 18:00 22:00 00:01 Temperature 98.7 F Pulse Rate 89 73 91 H Respiratory 18 Rate Blood Pressure 145/75 O2 Sat by Pulse 98 Oximetry 08/22/17 08/22/17 08/22/17 02:00 06:00 10:00 Temperature 98.7 F Pulse Rate 72 77 103 H Respiratory 20 Rate Blood Pressure 148/76 O2 Sat by Pulse 98 Oximetry 08/22/17 08/22/17 08/22/17 10:19 10:20 12:00 Temperature 98.8 F Pulse Rate 104 H 65 Respiratory 18 Rate Blood Pressure 126/70 126/70 105/57 L O2 Sat by Pulse Oximetry General: Alert, Oriented x3 HEENT: Atraumatic, PERRLA Lungs: Clear to auscultation, Normal air movement Cardiovascular: Normal S1, Normal S2 Abdomen: Normal bowel sounds, Soft Extremities: Normal pulses Skin: No significant lesion Neurological: Normal speech (pain to buttock reported s/p fall - will order LS xray ), Sensation intact [employer]SULE INSPECTOR Data Current Medications: Current Medications Albuterol/Ipratropium (Duoneb 3 Mg/0.5 Mg (3 Ml) Ud) 3 ml [facility]H [id number] [facility] Last Admin: 08/22/17 07:41 Dose: 3 ml Amlodipine Besylate (Norvasc) 10 mg PO DAILY [facility] Last Admin: 08/22/17 10:20 Dose: 10 mg Carvedilol (Coreg) 12.5 mg PO BID [facility] Clonazepam (Klonopin) 0.5 mg PO DAILY PRN; Protocol PRN Reason: Anxiety Last Admin: 08/21/17 15:59 Dose: 0.5 mg Famotidine (Pepcid) 40 mg PO HS [facility] Last Admin: 08/21/17 21:32 Dose: 40 mg Furosemide (Lasix) 40 mg PO BID [facility] Last Admin: 08/22/17 10:20 Dose: 40 mg Ceftriaxone Sodium (Rocephin 1 Gram Ivpb) 1 gm in 100 mls @ 100 mls/hr IVPB DAILY [facility] PRN Reason: Protocol Last Admin: 08/22/17 10:21 Dose: 100 mls/hr Lisinopril (Zestril) 30 mg PO DAILY [facility] Last Admin: 08/22/17 10:19 Dose: 30 mg Sertraline HCl (Zoloft) 100 mg PO DAILY [facility] Last Admin: 08/22/17 10:19 Dose: 100 mg 08/22/17 06:45 08/22/17 06:45 Procedures APPLICATION OF SPLINT (06/02/14) CL REDUC DISLOC-ELBOW (06/02/14) INJECT/INFUSE NEC (06/02/14) Assessment/Plan Patient Problems: Current Active Problems Problem Status Onset CHF (congestive heart failure) Acute UTI (urinary tract infection) Acute Plan/Action: 1. 2. 3. 4. 5. 6.
--- NOTE | 2017-08-22 13:33 | CP.PCM.PN ---
Subjective - Date & Time of Evaluation Date of Evaluation: 08/22/17 Time of Evaluation: 06:00 - Subjective Subjective: Patient seen and evaluated bedside. Patient was laying down comfortably and saying she feels better than yesterday and stated several times she wanted to go home. She denies any chest pain, SOB, cough. Patient denies any fever, sore throat, N/V/C/ diarrhea or any other complaints. Objective - Vital Signs/Intake and Output Vital Signs (last 24 hours): Temp Pulse Resp BP Pulse Ox 98.8 F 65 18 105/57 L 98 08/22/17 12:00 08/22/17 12:00 08/22/17 12:00 08/22/17 12:00 08/22/17 06:00 Intake and Output: 08/22/17 08/22/17 06:59 18:59 Intake Total 0 Balance 0 - Medications Medications: Current Medications Albuterol/Ipratropium (Duoneb 3 Mg/0.5 Mg (3 Ml) Ud) 3 ml IH [id number] [facility] Last Admin: 08/22/17 13:27 Dose: 3 ml Amlodipine Besylate (Norvasc) 10 mg PO DAILY [facility] Last Admin: 08/22/17 10:20 Dose: 10 mg Carvedilol (Coreg) 12.5 mg PO BID [facility] Clonazepam (Klonopin) 0.5 mg PO DAILY PRN; Protocol PRN Reason: Anxiety Last Admin: 08/21/17 15:59 Dose: 0.5 mg Famotidine (Pepcid) 40 mg PO HS [facility] Last Admin: 08/21/17 21:32 Dose: 40 mg Furosemide (Lasix) 40 mg PO BID [facility] Last Admin: 08/22/17 10:20 Dose: 40 mg Ceftriaxone Sodium (Rocephin 1 Gram Ivpb) 1 gm in 100 mls @ 100 mls/hr IVPB DAILY [facility] PRN Reason: Protocol Last Admin: 08/22/17 10:21 Dose: 100 mls/hr Lisinopril (Zestril) 30 mg PO DAILY [facility] Last Admin: 08/22/17 10:19 Dose: 30 mg Sertraline HCl (Zoloft) 100 mg PO DAILY [facility] Last Admin: 08/22/17 10:19 Dose: 100 mg - Labs Labs: 08/22/17 06:45 08/22/17 06:45 PT 11.0 Seconds (9.9-11.8) 08/20/17 06:00 INR 1.02 (0.93-1.08) 08/20/17 06:00 APTT 23.6 Seconds (23.7-30.8) L 08/20/17 06:00 - Constitutional Appears: Non-toxic, No Acute Distress - Head Exam Head Exam: ATRAUMATIC, NORMAL INSPECTION, NORMOCEPHALIC - Eye Exam Eye Exam: Normal appearance, PERRL Pupil Exam: NORMAL ACCOMODATION, PERRL - Neck Exam Neck Exam: Full ROM - Respiratory Exam Respiratory Exam: NORMAL BREATHING PATTERN Additional comments: very minimal wheezing bilateral lower lungs - Cardiovascular Exam Cardiovascular Exam: Irregular Rhythm - GI/Abdominal Exam GI & Abdominal Exam: Normal Bowel Sounds. absent: Tenderness - Extremities Exam Extremities Exam: Pedal Edema Additional comments: 1+ pitting edema B/l - Neurological Exam Neurological Exam: Alert, Awake, Oriented x3 - Psychiatric Exam Psychiatric exam: Anxious Assessment and Plan - Assessment and Plan (Free Text) Assessment: 81 yo female with PMH of HTN, atrial fibrillation, defibrillator placement, and open heart surgery due to reported valvular disease and replaced mitral valve admitted for evaluation and treatment for CHF exacerbation and UTI. She is being treated for her CHF exascerbation. Plan: 1. CHF Exacerbation -repeat CXR (08/20/2017) showed mild pulm vascular congestion and persistent mild cardiomegaly, minimal change from prior -BNP 4060 (08/20/2017) -Echo (02/2017): LVEF 30%, septal and apical hypokinesis, prosthetic mitral valve stenosis, moderate pulm HTN, mild to mod aortic stenosis -Cardiology consulted -Cont home meds: carvedilol, Lisinopril, amlodipine, furosemide -Strict I's and O's: in= 720 ml; out = 1600 ml -Daily Weights -Patient given duoneb treatment -Lower extremity doppler US negative for DVTs - Trops negative x3 2. UTI -UA positive for leukocyte esterase and moderate bacteria -Rocephin 1 gm IVPB daily continue -urine and blood cultures pending; blood cultures no growth after 24 hours; gram stain pending 3. HTN -Cont home meds: Coreg, Lisinopril -148/76 continue to monitor 4. H/O depression/anxiety -Cont home meds: Klonopin, Zoloft 5. Possible underlying dementia -Psych consult 6. GI/DVT PPx -Pepcid -SCDs -Protonix, Heparin CI due to thrombocytopenia Case discussed with corrections caseworker, patient insurance not accepted in TCU, will look for another [facility] facility, and speak to family member minerva, son
--- NOTE | 2017-08-22 14:53 | RAD ---
PROCEDURE: Radiographs of the Lumbar Spine. HISTORY: code star COMPARISON: No prior. FINDINGS: BONES: Normal alignment. No listhesis. No fracture. DISC SPACES: Unremarkable. OTHER FINDINGS: None. IMPRESSION: Unremarkable radiographs of the lumbar spine.
[2017-08-23] MEDS: Albuterol-Ipratrop 3 mg / 0.5 (3 ml) UD IH SCH ×3 (03:15→13:14)
[2017-08-23 07:37] LABS: HEMATOCRIT 36.3 % (36.0-48.0); MEAN CELL VOLUME 93.3 fl (80.0-105.0); MEAN CORPUSCULAR HEMOGLOBIN 31.6 pg (25.0-35.0); MEAN CORPUSCULAR HGB CONC 33.9 g/dl (31.0-37.0); MEAN PLATELET VOLUME 10.3 fl (7.0-11.0); RED CELL DISTRIBUTION WIDTH 13.2 % (11.5-14.5); WHITE BLOOD COUNT 6.7 10^3/ul (4.5-11.0)
[2017-08-23 07:45] LABS: ALB/GLOB RATIO 1.3 (1.1-1.8); ALKALINE PHOSPHATASE 72 U/L (38-126); ALT/SGPT 29 U/L (7-56); AST/SGOT 21 U/L (14-36); BILIRUBIN,TOTAL 0.6 mg/dL (0.2-1.3); BLOOD UREA NITROGEN 28 mg/dL (7-21); CALCIUM 8.8 mg/dL (8.4-10.5); CARBON DIOXIDE 30 mmol/L (21-33); CHLORIDE 97 mmol/L (95-110); GFR AFRICAN-AMERICAN > 60; GLUCOSE,RANDOM 108 mg/dL (70-110); POTASSIUM 3.9 mmol/L (3.6-5.0); SODIUM 133 mmol/L (132-148)
[2017-08-23 08:12] VITALS: BP 139/78; PULSE 78; RESP 18; TEMP 98.8; O2SAT 97
[2017-08-23] MEDS: cefTRIAXone 1 gm 1 GM/100 ML BAG IVPB SCH (09:24)
--- NOTE | 2017-08-23 12:44 | RAD ---
PROCEDURE: Left Hip and pelvis X-ray Radiographs. HISTORY: fall COMPARISON: None. FINDINGS: BONES: Normal. No fracture. JOINTS: Normal. SOFT TISSUES: Normal. OTHER FINDINGS: There is an intramedullary manuel in the left femur and a left knee prosthesis. IMPRESSION: No acute findings
--- NOTE | 2017-08-23 13:34 | CP.PCM.DIS ---
Provider - Provider Date of Admission: 08/20/17 14:47 Attending physician: Bon Chowdhury MD Primary care physician: Bon Chowdhury MD Time Spent in preparation of Discharge (in minutes): 70 Hospital Course - Lab Results Lab Results: Most Recent Lab Values WBC 6.7 10^3/ul (4.5-11.0) 08/23/17 07:20 RBC 3.89 10^6/uL (3.5-6.1) 08/23/17 07:20 Hgb 12.3 g/dL (12.0-16.0) 08/23/17 07:20 Hct 36.3 % (36.0-48.0) 08/23/17 07:20 MCV 93.3 fl (80.0-105.0) 08/23/17 07:20 MCH 31.6 pg (25.0-35.0) 08/23/17 07:20 MCHC 33.9 g/dl (31.0-37.0) 08/23/17 07:20 RDW 13.2 % (11.5-14.5) 08/23/17 07:20 Plt Count 91 10^3/uL (120.0-450.0) L 08/23/17 07:20 MPV 10.3 fl (7.0-11.0) 08/23/17 07:20 Gran % 50.2 % (50.0-68.0) 08/19/17 20:15 Lymph % (Auto) 33.7 % (22.0-35.0) 08/19/17 20:15 [place] % (Auto) 13.5 % (1.0-6.0) H 08/19/17 20:15 Eos % (Auto) 2.3 % (1.5-5.0) 08/19/17 20:15 Baso % (Auto) 0.3 % (0.0-3.0) 08/19/17 20:15 Gran # 3.69 (1.4-6.5) 08/19/17 20:15 Lymph # 2.5 (1.2-3.4) 08/19/17 20:15 [place] # 1.0 (0.1-0.6) H 08/19/17 20:15 Eos # 0.2 (0.0-0.7) 08/19/17 20:15 Baso # 0.02 K/mm3 (0.0-2.0) 08/19/17 20:15 PT 11.0 Seconds (9.9-11.8) 08/20/17 06:00 INR 1.02 (0.93-1.08) 08/20/17 06:00 APTT 23.6 Seconds (23.7-30.8) L 08/20/17 06:00 Sodium 133 mmol/L (132-148) 08/23/17 07:20 Potassium 3.9 mmol/L (3.6-5.0) 08/23/17 07:20 Chloride 97 mmol/L (95-110) 08/23/17 07:20 Carbon Dioxide 30 mmol/L (21-33) 08/23/17 07:20 Anion Gap 10 (10-20) 08/23/17 07:20 BUN 28 mg/dL (7-21) H 08/23/17 07:20 Creatinine 1.0 mg/dL (0.7-1.2) 08/23/17 07:20 Est GFR ( Amer) > 60 08/23/17 07:20 Est GFR (Non-Af Amer) 53 08/23/17 07:20 Random Glucose 108 mg/dL (70-110) 08/23/17 07:20 Calcium 8.8 mg/dL (8.4-10.5) 08/23/17 07:20 Phosphorus 3.8 mg/dL (2.5-4.5) 08/20/17 06:00 Magnesium 2.0 mg/dL (1.7-2.2) 08/20/17 06:00 Total Bilirubin 0.6 mg/dL (0.2-1.3) 08/23/17 07:20 AST 21 U/L (14-36) 08/23/17 07:20 ALT 29 U/L (7-56) 08/23/17 07:20 Alkaline Phosphatase 72 U/L (38-126) 08/23/17 07:20 Lactate Dehydrogenase 786 U/L (333-699) H 08/19/17 20:15 Total Creatine Kinase 60 U/L (35-230) 08/19/17 20:15 Troponin I 0.02 ng/mL 08/20/17 18:15 NT-Pro-B Natriuret Pep 4060 pg/mL (0-450) H 08/19/17 20:15 Total Protein 6.0 g/dL (5.8-8.3) 08/23/17 07:20 Albumin 3.4 g/dL (3.0-4.8) 08/23/17 07:20 Globulin 2.6 gm/dL 08/23/17 07:20 Albumin/Globulin Ratio 1.3 (1.1-1.8) 08/23/17 07:20 Urine Color Light yellow (YELLOW) 08/19/17 21:00 Urine Appearance Clear (CLEAR) 08/19/17 21:00 Urine pH 6.0 (4.7-8.0) 08/19/17 21:00 Ur Specific [place] 1.015 (1.005-1.035) 08/19/17 21:00 Urine Protein Negative mg/dL (<30 mg/dL) 08/19/17 21:00 Urine Glucose (UA) Negative mg/dL (NEGATIVE) 08/19/17 21:00 Urine Ketones Negative mg/dL (NEGATIVE) 08/19/17 21:00 Urine Blood Trace-intact (NEGATIVE) H 08/19/17 21:00 Urine Nitrate Negative (NEGATIVE) 08/19/17 21:00 Urine Bilirubin Negative (NEGATIVE) 08/19/17 21:00 Urine Urobilinogen 0.2 E.U./dL (<1 E.U./dL) 08/19/17 21:00 Ur Leukocyte Esterase Moderate Dario/uL (NEGATIVE) H 08/19/17 21:00 Urine RBC 0 - 2 /hpf (0-2) 08/19/17 21:00 Urine WBC 5 - 10 /hpf (0-6) 08/19/17 21:00 Ur Epithelial Cells 4 - 5 /hpf (0-5) 08/19/17 21:00 Urine Bacteria Mod (NEG) 08/19/17 21:00 Urine Other Fiber 08/19/17 21:00 - Hospital Course Hospital Course: Pt is an 81 yo F with PMH of CHF, HTN, atrial fibrillation, pacemaker placement , and open heart surgery due to valvular disease who presented to the [facility] with a 1 day history of SOB. Pt is a poor historian as she cannot remember some of the details of her current HPI as well as her PMH. Patient was admitted and evaluated for SOB. Blood work and metabolic panel was ordered. Home medications were started. Serial troponins obtained and negative. Lower Extremity US was obtained and was negative. Chest xray was done twice. Xray of the lumbar spine, left hip and pelvis was also done. Patient was Given duonebs, repeat. She was found to have a UTI and blood and urine cultures were ordered. She was started and completed abx therapy. Urine output was monitored and echo was done showing stenotic mitral valve and Cardio was consulted. They stated to continue cardio meds. Patient improved clinnically and was discharged to sub acute rehab. Anticoagulation was discussed with the family (jose) Discharge Exam - Head Exam Head Exam: ATRAUMATIC, NORMAL INSPECTION, NORMOCEPHALIC - Eye Exam Eye Exam: Normal appearance - Respiratory Exam Respiratory Exam: Clear to PA & Lateral, NORMAL BREATHING PATTERN - Cardiovascular Exam Cardiovascular Exam: Irregular Rhythm - GI/Abdominal Exam GI & Abdominal Exam: Normal Bowel Sounds, Unremarkable - Extremities Exam Extremities exam: pedal edema - Neurological Exam Neurological exam: Alert - Psychiatric Exam Psychiatric exam: Anxious Discharge Plan - Follow Up Plan Condition: FAIR Disposition: REHAB FACILITY/REHAB UNIT Instructions: Heart Failure (GEN), Fall Prevention for Older Adults (GEN), Cholesterol and Your Health (GEN), Hypertension (GEN), Anxiety (GEN) Referrals: Bon Chowdhury MD [Primary Care Provider] -
== END 2017-08-23 15:50 | DRG 292 ==
LOC: ED 19:56 → ERH 22:44 → 2RSO 08-20 01:15 → OBSVTOIN 08-20 14:47 → 5RSO 08-22 18:57
PROVIDERS: ADMIT Internal Medicine; ATTEND Internal Medicine
DX: I11.0 Hypertensive heart disease with heart failure (principal); T82.857A Stenosis of other cardiac prosthetic devices, implants and grafts, initial encounter; F03.90 Unspecified dementia, unspecified severity, without behavioral disturbance, psychotic disturbance, mood disturbance, and anxiety; N39.0 Urinary tract infection, site not specified; D69.6 Thrombocytopenia, unspecified; W18.11XA Fall from or off toilet without subsequent striking against object, initial encounter; I48.2 Chronic atrial fibrillation; Z95.2 Presence of prosthetic heart valve; Z95.1 Presence of aortocoronary bypass graft; E78.5 Hyperlipidemia, unspecified; I50.42 Chronic combined systolic (congestive) and diastolic (congestive) heart failure; I25.10 Atherosclerotic heart disease of native coronary artery without angina pectoris; Z95.0 Presence of cardiac pacemaker; Z91.81 History of falling; Y92.230 Patient room in hospital as the place of occurrence of the external cause; Y83.1 Surgical operation with implant of artificial internal device as the cause of abnormal reaction of the patient, or of later complication, without mention of misadventure at the time of the procedure; F41.9 Anxiety disorder, unspecified; Z79.899 Other long term (current) drug therapy; Z82.49 Family history of ischemic heart disease and other diseases of the circulatory system; Z95.810 Presence of automatic (implantable) cardiac defibrillator; Z96.652 Presence of left artificial knee joint; Z98.42 Cataract extraction status, left eye; Z98.41 Cataract extraction status, right eye; S40.021A Contusion of right upper arm, initial encounter; S70.11XA Contusion of right thigh, initial encounter; S80.02XA Contusion of left knee, initial encounter; S10.93XA Contusion of unspecified part of neck, initial encounter; R26.81 Unsteadiness on feet; Z91.041 Radiographic dye allergy status; R40.2412 Glasgow coma scale score 13-15, at arrival to emergency department; Z90.710 Acquired absence of both cervix and uterus; I27.20 Pulmonary hypertension, unspecified; I35.0 Nonrheumatic aortic (valve) stenosis; F32.9 Major depressive disorder, single episode, unspecified